=== PATIENT | female | born 1950 | race Caucasian/White ===

== ENCOUNTER 2016-10-05 16:36 | Inpatient (IN) | payer OTHER ==
[~2016-10-05] VITALS: Ht 144.8 cm; Wt 42.9 kg
[~2016-10-05 16:36] MED LIST: AGM875 PO
[2016-10-05] MEDS ORDERED: OPTIRAY 320 IV PRN (17:30)
[2016-10-05] MEDS ORDERED: LISI-461 PO (17:54)
[2016-10-05] MEDS ORDERED: PRLSR20 PO (17:54)
[2016-10-05 18:05] LABS: MEAN CELL VOLUME 83.6 fL (80-100); MEAN CORPUSCULAR HEMOGLOBIN 26.1 pg (25-34); MEAN CORPUSCULAR HGB CONC 31.3 g/dl (32-36); MEAN PLATELET VOLUME 9.7 fL (7.4-10.4); PLATELET COUNT 339 K/uL (130-400); RED BLOOD COUNT 3.71 M/uL (4.2-5.4); WHITE BLOOD COUNT 7.06 K/uL (4.8-10.8)
--- NOTE | 2016-10-05 18:07 | DIAGNOSTIC IMAGING REPORT ---
SINGLE VIEW CHEST CLINICAL HISTORY: Fever. Sepsis. FINDINGS: An AP, portable, upright chest radiograph is obtained. No prior studies are available for comparison at the time of dictation. The examination is degraded by portable technique and patient rotation. The heart appears enlarged. The pulmonary vasculature is noncongested. There are layering pleural effusions, right larger than left with bibasilar consolidation. No pneumothorax is seen. The skeletal structures are osteopenic. The bony thorax is grossly intact. IMPRESSION: 1. Cardiomegaly without radiographic evidence of congestive failure. 2. Layering pleural effusions, right larger than left with bibasilar consolidation. The majority of this likely represents atelectasis. Correlate clinically for evidence of superimposed pneumonia. Electronically signed by: Leroy Mcmahan M.D. 10/05/2016 6:06 PM Dictated Date/Time: 10/05/2016 6:05 PM
[2016-10-05 18:18] LABS: INR 1.1 (0.9-1.1); PARTIAL THROMBOPLASTIN RATIO 1.2; PROTHROMBIN TIME (PATIENT) 11.3 SECONDS (9.0-12.0)
[2016-10-05 18:22] LABS: ALT/SGPT 11 U/L (12-78); AST/SGOT 61 U/L (15-37); BLOOD UREA NITROGEN 19 mg/dl (7-18); BUN/CREATININE RATIO 30.4 (10-20); CALCIUM 8.6 mg/dl (8.5-10.1); CARBON DIOXIDE 25 mmol/L (21-32); CHLORIDE 109 mmol/L (98-107); CREATININE 0.62 mg/dl (0.60-1.20); GLUCOSE 95 mg/dl (70-99); POTASSIUM 4.1 mmol/L (3.5-5.1); SODIUM 144 mmol/L (136-145)
[2016-10-05 18:26] LABS: BASO % 0.1 %; BASO ABS # 0.01 K/uL (0-0.2); COMPLETE YES; EOS % 0.3 %; IG% 0.4 %; LYMPH % 10.9 %; LYMPH ABS # 0.77 K/uL (1.2-3.4); MONO % 6.2 %; NEUT % 82.1 %
[2016-10-05 18:31] LABS: ALKALINE PHOSPHATASE 52 U/L (45-117); CKMB/CK RATIO 1.7 (0-3.0)
--- NOTE | 2016-10-05 18:51 | DIAGNOSTIC IMAGING REPORT ---
CT ANGIOGRAM OF THE CHEST CLINICAL HISTORY: Atypical chest pain. Lower extremity deep venous thrombosis. COMPARISON STUDY: Chest x-ray dated 10/05/2016. TECHNIQUE: Following the IV administration of 80 cc of Optiray 320, CT angiogram of the chest was performed from the upper abdomen to the thoracic inlet utilizing the pulmonary embolus protocol. Images are reviewed in the axial, sagittal, and coronal planes. 3-D MIPS images are created and assessed. IV contrast was administered without complication. The examination is degraded by motion artifact, as well as by streak artifact from the patient's left arm which could not be elevated above the chest. CT DOSE: 151.87 mGy.cm FINDINGS: Thyroid: The right lobe of the thyroid gland is enlarged and heterogeneous. Subcentimeter nodules are identified. Thoracic aorta: The thoracic aorta is normal in caliber and demonstrates 4-vessel variant arch anatomy. No dissection is seen. Pulmonary vasculature: The pulmonary trunk is normal in caliber. There are no filling defects identified in main, lobar, or segmental pulmonary branches to suggest pulmonary embolus. Heart: The heart is top normal in size and without pericardial effusion. Lungs and pleural spaces: Evaluation of the lung parenchyma is degraded by expiratory motion artifact. There are moderate pleural effusions with bibasilar consolidation. The trachea and central airways are clear. Mediastinum: There is no mediastinal lymphadenopathy. Rebeca: Clear. Axillae: There is no axillary lymphadenopathy. Upper abdomen: A moderate hiatal hernia is identified. The liver is cirrhotic in morphology. There is a moderate volume of upper abdominal ascites. Peritoneal nodularity is suspected in the left upper quadrant. A 12 mm cyst is noted in the right lobe of the liver. Skeletal structures: The skeletal structures are osteopenic. Mild degenerative change is noted throughout the thoracic spine. No lytic or blastic bony lesions are seen. Soft tissues: The patient is cachectic. IMPRESSION: 1. Motion and streak artifact degraded examination 2. There is no evidence of pulmonary embolus in the main, lobar, or segmental pulmonary arteries. 3. Moderate pleural effusions with bibasilar consolidation. This likely represents atelectasis. Correlate clinically for evidence of superimposed pneumonia. 4. Cirrhotic liver morphology and upper abdominal ascites. 5. There is peritoneal nodularity identified in the upper abdomen suggesting carcinomatosis. Correlation with the patient's oncologic history will be required. 6. Moderate hiatal hernia. 7. Additional findings as above. Electronically signed by: Leroy Mcmahan M.D. 10/05/2016 6:49 PM Dictated Date/Time: 10/05/2016 6:41 PM
--- NOTE | 2016-10-05 19:23 | EMERGENCY ROOM VISIT NOTE ---
History Report prepared by Nico: Omer Pineda Under the Supervision of: Dr. Jose Gray D.O. First contact with patient: 16:42 Chief Complaint: ABNORMAL DIAGNOSTIC TESTING Stated Complaint: DVT IN RT LEG History of Present Illness The patient is a 66 year old female who presents to the Emergency Room with complaints of an episode of abnormal diagnostic testing today. Per the patient' s aide, she is has cancer and had an US today to determine if she could go home. A blood clot was noted to be present in her leg. The patient has no recent falls and does not take any reported medications, but she had an episode of hypertension about 6 months ago. She is mentally challenged and lives independently but has aides that come in for assistance. Per the patient, she denies any shortness of breath or any pain. Source of History: patient, caregiver Onset: today Position: other (legs) Quality: other (abnormal diagnostic testing) Timing: other (episode) Associated Symptoms: No SOB Review of Systems See HPI for pertinent positives & negatives. A total of 10 systems reviewed and were otherwise negative. Past Medical & Surgical Medical Problems: (1) History of cancer Family History No pertinent family history stated. Social History Smoking Status: Never Smoker Housing Status: lives alone Current/Historical Medications Scheduled Lisinopril (Zestril), 10 MG PO DAILY Omeprazole (Prilosec), 20 MG PO DAILY Allergies Coded Allergies: No Known Allergies (Unverified , 10/05/16) Physical Exam Vital Signs Date Time Temp Pulse Resp B/P Pulse Ox O2 Delivery O2 Flow Rate FiO2 10/05/16 18:44 91 24 99/70 95 4.0 10/05/16 17:56 95 Nasal Cannula 4.0 10/05/16 17:52 93 24 90 Nasal Cannula 2.0 10/05/16 17:48 113 10/05/16 17:41 Nasal Cannula 2.0 10/05/16 17:36 102 102/70 10/05/16 16:48 37.5 106 20 83/56 89 Room Air Physical Exam CONSTITUTIONAL/VITAL SIGNS: Reviewed / noted above. GENERAL: Non-toxic in appearance. INTEGUMENTARY: Warm, dry, and [place]. HEAD: Normocephalic. EYES: without scleral icterus or trauma. ENT/OROPHARYNX: clear and moist. LYMPHADENOPATHY/NECK: Is supple without lymphadenopathy or meningismus. RESPIRATORY: Lungs clear and equal. CARDIOVASCULAR: Regular rate and rhythm. GI/ABDOMEN: Soft and nontender. No organomegaly or pulsatile mass. No rebound or guarding. Normal bowel sounds. EXTREMITIES: Warm and well perfused. BACK: No CVA tenderness. NEUROLOGICAL: Intact without focal deficits. PSYCHIATRIC: normal affect. MUSCULOSKELETAL: Normally developed with good muscle tone. Medical Decision & Procedures ER Provider Diagnostic Interpretation: Radiology results are stated below per my review and radiologist interpretation: SINGLE VIEW CHEST FINDINGS: An AP, portable, upright chest radiograph is obtained. No prior studies are available for comparison at the time of dictation. The examination is degraded by portable technique and patient rotation. The heart appears enlarged. The pulmonary vasculature is noncongested. There are layering pleural effusions, right larger than left with bibasilar consolidation. No pneumothorax is seen. The skeletal structures are osteopenic. The bony thorax is grossly intact. IMPRESSION: 1. Cardiomegaly without radiographic evidence of congestive failure. 2. Layering pleural effusions, right larger than left with bibasilar consolidation. The majority of this likely represents atelectasis. Correlate clinically for evidence of superimposed pneumonia. Electronically signed by: Leroy Mcmahan M.D. 10/05/2016 6:06 PM Dictated Date/Time: 10/05/2016 6:[address] ANGIOGRAM OF THE CHEST FINDINGS: Thyroid: The right lobe of the thyroid gland is enlarged and heterogeneous. Subcentimeter nodules are identified. Thoracic aorta: The thoracic aorta is normal in caliber and demonstrates 4-vessel variant arch anatomy. No dissection is seen. Pulmonary vasculature: The pulmonary trunk is normal in caliber. There are no filling defects identified in main, lobar, or segmental pulmonary branches to suggest pulmonary embolus. Heart: The heart is top normal in size and without pericardial effusion. Lungs and pleural spaces: Evaluation of the lung parenchyma is degraded by expiratory motion artifact. There are moderate pleural effusions with bibasilar consolidation. The trachea and central airways are clear. Mediastinum: There is no mediastinal lymphadenopathy. Rebeca: Clear. Axillae: There is no axillary lymphadenopathy. Upper abdomen: A moderate hiatal hernia is identified. The liver is cirrhotic in morphology. There is a moderate volume of upper abdominal ascites. Peritoneal nodularity is suspected in the left upper quadrant. A 12 mm cyst is noted in the right lobe of the liver. Skeletal structures: The skeletal structures are osteopenic. Mild degenerative change is noted throughout the thoracic spine. No lytic or blastic bony lesions are seen. Soft tissues: The patient is cachectic. IMPRESSION: 1. Motion and streak artifact degraded examination 2. There is no evidence of pulmonary embolus in the main, lobar, or segmental pulmonary arteries. 3. Moderate pleural effusions with bibasilar consolidation. This likely represents atelectasis. Correlate clinically for evidence of superimposed pneumonia. 4. Cirrhotic liver morphology and upper abdominal ascites. 5. There is peritoneal nodularity identified in the upper abdomen suggesting carcinomatosis. Correlation with the patient's oncologic history will be required. 6. Moderate hiatal hernia. 7. Additional findings as above. Electronically signed by: Leroy Mcmahan M.D. 10/05/2016 6:49 PM Dictated Date/Time: 10/05/2016 6:41 PM Laboratory Results 10/05/16 17:50 Red Blood Count 3.71, Mean Corpuscular Volume 83.6, Mean Corpuscular Hemoglobin 26.1, Mean Corpuscular Hemoglobin Concent 31.3, Mean Platelet Volume 9.7, Neutrophils (%) (Auto) 82.1, Lymphocytes (%) (Auto) 10.9, Monocytes (%) (Auto) 6.2, Eosinophils (%) (Auto) 0.3, Basophils (%) (Auto) 0.1, Neutrophils # (Auto) 5.79, Lymphocytes # (Auto) 0.77, Monocytes # (Auto) 0.44, Eosinophils # (Auto) 0.02, Basophils # (Auto) 0.01 10/05/16 17:50 Test 10/05/16 17:50 White Blood Count 7.06 K/uL (4.8-10.8) Red Blood Count 3.71 M/uL (4.2-5.4) Hemoglobin 9.7 g/dL (12.0-16.0) Hematocrit 31.0 % (37-47) Mean Corpuscular Volume 83.6 fL (80-100) Mean Corpuscular Hemoglobin 26.1 pg (25-34) Mean Corpuscular Hemoglobin Concent 31.3 g/dl (32-36) Platelet Count 339 K/uL (130-400) Mean Platelet Volume 9.7 fL (7.4-10.4) Neutrophils (%) (Auto) 82.1 % Lymphocytes (%) (Auto) 10.9 % Monocytes (%) (Auto) 6.2 % Eosinophils (%) (Auto) 0.3 % Basophils (%) (Auto) 0.1 % Neutrophils # (Auto) 5.79 K/uL (1.4-6.5) Lymphocytes # (Auto) 0.77 K/uL (1.2-3.4) Monocytes # (Auto) 0.44 K/uL (0.11-0.59) Eosinophils # (Auto) 0.02 K/uL (0-0.5) Basophils # (Auto) 0.01 K/uL (0-0.2) RDW Standard Deviation 55.1 fL (36.4-46.3) RDW Coefficient of Variation 17.9 % (11.5-14.5) Immature Granulocyte % (Auto) 0.4 % Immature Granulocyte # (Auto) 0.03 K/uL (0.00-0.02) Prothrombin Time 11.3 SECONDS (9.0-12.0) Prothromb Time International Ratio 1.1 (0.9-1.1) Activated Partial Thromboplast Time 30.3 SECONDS (21.0-31.0) Partial Thromboplastin Ratio 1.2 Anion Gap 10.0 mmol/L (3-11) Estimated GFR () 110.4 Estimated GFR (Non- 95.3 BUN/Creatinine Ratio 30.4 (10-20) Calcium Level 8.6 mg/dl (8.5-10.1) Total Bilirubin 0.5 mg/dl (0.2-1) Direct Bilirubin 0.2 mg/dl (0-0.2) Aspartate Amino Transf (AST/SGOT) 61 U/L (15-37) Alanine Aminotransferase (ALT/SGPT) 11 U/L (12-78) Alkaline Phosphatase 52 U/L (45-117) Total Creatine Kinase 112 U/L (26-192) Creatine Kinase MB 1.9 ng/ml (0.5-3.6) Creatine Kinase MB Ratio 1.7 (0-3.0) Troponin I 1.310 ng/ml (0-0.045) Total Protein 6.5 gm/dl (6.4-8.2) Albumin 2.2 gm/dl (3.4-5.0) Lipase 409 U/L (73-393) Laboratory results as stated above per my review. ECG Indication: other (abnormal diagnostic testing) Rate (beats per minute): 98 Rhythm: normal sinus Findings: no acute ischemic change, no ectopy, other (low voltage) ED Course 1740: Previous medical records were reviewed. The patient was evaluated in room A10. A complete history and physical examination was performed. 1909: Discussed the patient's case with Evelyne Wells PA-C. The patient will be evaluated for further treatment and disposition. Medical Decision the differential was considered includes acute myocardial infarction, acute coronary syndrome, myocarditis, pericarditis, pericardial effusions /tamponade, esophageal perforation, thoracic aortic dissection, pulmonary embolism, pneumonia, pneumothorax, pancreatitis, shingles, acute cholecystitis, perforated abdominal viscus. This is a 66-year-old female who presents to the ED with a chief complaint of a DVT in the right lower extremity. The patient had an outpatient ultrasound that revealed a DVT. The patient was sent here after evaluation of this. There was concern for a PE because the patient has lower pulse ox readings at the office. They were around 90-92%. The patient has some mild MR and is unable to provide much details. She has no specific complaints. She has a history of pancreatic cancer and is supposed to be on palliative care. Her only living relative is her sister who lives in [place]. Her name is Lety and her number is [phone]. She is not yet power of corporate associate attorney but the PCP was going to fill out paperwork tomorrow for this. This will likely not get done since the patient is not following up tomorrow. The patient's EKG shows normal sinus rhythm at a rate of 98 without acute ischemic changes. Troponin is 1.31. CT scan of the chest did not reveal obvious PE. There was some atelectasis. No obvious pneumonia. Hemoglobin was 9.7. The patient was told the results. She will be admitted to the hospital for further inpatient care. I spoke with the hospitalist about this patient. Consults Time Called: 1904 Consulting Physician: Evelyne Wells PA-C, [place] Returned Call: 1909 Discussed the patient's case with Evelyne Wells PA-C. The patient will be evaluated for further treatment and disposition. Impression Primary Impression: DVT (deep venous thrombosis) Additional Impression: Elevated troponin Scribe Attestation The scribe's documentation has been prepared under my direction and personally reviewed by me in its entirety. I confirm that the note above accurately reflects all work, treatment, procedures, and medical decision making performed by me. Departure Information Dispostion Being Evaluated By Hospitalist Referrals Pamela Kim PA-C (PCP) Patient Instructions My [facility] Problem Qualifiers
[2016-10-05] MEDS ORDERED: LSN20 PO (19:58)
[2016-10-05] MEDS ORDERED: ACETAMINOPHEN 325 MG TAB PO ONE (20:17)
[2016-10-05] MEDS ORDERED: ACETAMINOPHEN 325 MG TAB PO PRN (20:30)
[2016-10-05 20:33] LABS: ALLEN TEST POS (POS); ARTERIAL BLD GAS O2 SATURATION 93.2 % (90-95); ARTERIAL BLOOD GAS BASE EXCESS -1.6 mEq/L (-9-1.8); ARTERIAL BLOOD GAS HCO3 21 mmol/L (19-24); ARTERIAL BLOOD GAS PO2 68 mmHg (80-95); O2 ADMINISTRATION 4L O2
[2016-10-05 20:35] LABS: ARTERIAL BLOOD GAS pH 7.51 (7.35-7.45)
--- NOTE | 2016-10-05 20:39 | History and Physical ---
History & Physical Date & Time of Service: Oct 05, 2016 at 19:58 Chief Complaint: Dvt In Rt Leg Primary Care Physician: Pamela Kim PA-C History of Present Illness Source: patient, clinic records, hospital records, other (aide from [employer]) This is a 66 y/o female with PMH of intellectual disability, pancreatic cancer stage IV with pelvic mass, malignant ascites, pleural effusions, who was sent to the ED for DVT on outpatient ultrasound. Hx obtained from records and aide at bedside as patient is a poor historian. Patient was seen by Dr. Parker today and noted to have trace edema and borderline sat of 91@ on RA. Ultrasound showed RLE DVT. Pt also underwent therapeutic paracentesis. Patient's aide at bedside states the abdominal distension appears improved. Appetite has been low. Weight dropped 25 lb in past year. Pt previously lived independently but is less able to take care of herself for past few weeks. No hx of heart disease. She was not on oxygen at home. Patient denies fever, chills, rhinorrhea , cough, chest pain, SOB, abdominal pain, nausea, vomiting, diarrhea, dysuria, frequency, calf pain, abnormal bleeding, wounds. ROS not entirely reliable as her aide notes that patient is unlikely to complain when having symptoms. Past Medical/Surgical History Medical Problems: (1) Hypertension Status: Chronic (2) Intellectual disability Status: Chronic (3) Malignant ascites Status: Chronic (4) Pancreatic cancer Permanent Comment: stage IV Status: Chronic (5) Pelvic mass Status: Chronic Surgical Problems: (1) H/O tubal ligation Status: Chronic Family History FH: CAD (coronary artery disease) FATHER FH: cancer FATHER (prostate CA) Social History Smoking Status: Never Smoker Alcohol Use: none Drug Use: none Housing status: lives alone (aide from [employer] checks in on her) Multi-Drug Resistant Organisms History of MDRO: No Allergies Coded Allergies: No Known Allergies (Unverified , 10/05/16) Home Medications Scheduled Lisinopril (Lisinopril), 20 MG PO DAILY Omeprazole (Prilosec), 20 MG PO DAILY Review of Systems Ten point ROS performed with pertinent positives and negatives noted in HPI. ROS not entirely reliable from the patient as caregiver states she is not likely to complain when having symptoms. Physical Exam Vital Signs Date Time Temp Pulse Resp B/P Pulse Ox O2 Delivery O2 Flow Rate FiO2 3/2/17 19:41 37.6 93 31 97/66 93 Nasal Cannula 4.0 10/05/16 18:44 91 24 99/70 95 4.0 10/05/16 17:56 95 Nasal Cannula 4.0 10/05/16 17:52 93 24 90 Nasal Cannula 2.0 10/05/16 17:48 113 10/05/16 17:41 Nasal Cannula 2.0 10/05/16 17:36 102 102/70 10/05/16 16:48 37.5 106 20 83/56 89 Room Air General Appearance: no apparent distress, + cachetic, + pertinent finding ( alert chronically ill appearing 66 year old female, intellectual disability, aide at bedside) Head: normocephalic, atraumatic Eyes: normal inspection, PERRL, EOMI ENT: hearing grossly normal, + pertinent finding (pt uncooperative with exam of pharynx) Neck: trachea midline Respiratory/Chest: lungs clear, no respiratory distress, no accessory muscle use, + decreased breath sounds (at bases), + pertinent finding (no adventitious sounds) Cardiovascular: regular rate, rhythm, no murmur Abdomen/GI: normal bowel sounds, non tender, soft, + pertinent finding (mildly distended but soft, mass felt in pelvis) Extremities/Musculoskelatal: no calf tenderness, + pertinent finding (trace pretibial edema bilaterally) Neurologic/Psych: alert, normal mood/affect, oriented x 3, + pertinent finding (intellectual disability) Skin: normal color, warm/dry Diagnostics Laboratory Results Results Past 24 Hours Test 10/05/16 17:50 10/05/16 19:35 Range/Units White Blood Count 7.06 4.8-10.8 K/uL Red Blood Count 3.71 4.2-5.4 M/uL Hemoglobin 9.7 12.0-16.0 g/dL Hematocrit 31.0 37-47 % Mean Corpuscular Volume 83.6 80-100 fL Mean Corpuscular Hemoglobin 26.1 25-34 pg Mean Corpuscular Hemoglobin Concent 31.3 32-36 g/dl Platelet Count 339 130-400 K/uL Mean Platelet Volume 9.7 7.4-10.4 fL Neutrophils (%) (Auto) 82.1 % Lymphocytes (%) (Auto) 10.9 % Monocytes (%) (Auto) 6.2 % Eosinophils (%) (Auto) 0.3 % Basophils (%) (Auto) 0.1 % Neutrophils # (Auto) 5.79 1.4-6.5 K/uL Lymphocytes # (Auto) 0.77 1.2-3.4 K/uL Monocytes # (Auto) 0.44 0.11-0.59 K/uL Eosinophils # (Auto) 0.02 0-0.5 K/uL Basophils # (Auto) 0.01 0-0.2 K/uL RDW Standard Deviation 55.1 36.4-46.3 fL RDW Coefficient of Variation 17.9 11.5-14.5 % Immature Granulocyte % (Auto) 0.4 % Immature Granulocyte # (Auto) 0.03 0.00-0.02 K/uL Prothrombin Time 11.3 9.0-12.0 SECONDS Prothromb Time International Ratio 1.1 0.9-1.1 Activated Partial Thromboplast Time 30.3 21.0-31.0 SECONDS Partial Thromboplastin Ratio 1.2 Sodium Level 144 136-145 mmol/L Potassium Level 4.1 3.5-5.1 mmol/L Chloride Level 109 98-107 mmol/L Carbon Dioxide Level 25 21-32 mmol/L Anion Gap 10.0 3-11 mmol/L Blood Urea Nitrogen 19 7-18 mg/dl Creatinine 0.62 0.60-1.20 mg/dl Estimated GFR () 110.4 Estimated GFR (Non- 95.3 BUN/Creatinine Ratio 30.4 10-20 Random Glucose 95 70-99 mg/dl Calcium Level 8.6 8.5-10.1 mg/dl Total Bilirubin 0.5 0.2-1 mg/dl Direct Bilirubin 0.2 0-0.2 mg/dl Aspartate Amino Transf (AST/SGOT) 61 15-37 U/L Alanine Aminotransferase (ALT/SGPT) 11 12-78 U/L Alkaline Phosphatase 52 45-117 U/L Total Creatine Kinase 112 26-192 U/L Creatine Kinase MB 1.9 0.5-3.6 ng/ml Creatine Kinase MB Ratio 1.7 0-3.0 Troponin I 1.310 0-0.045 ng/ml Total Protein 6.5 6.4-8.2 gm/dl Albumin 2.2 3.4-5.0 gm/dl Lipase 409 73-393 U/L Diagnostic Radiology SINGLE VIEW CHEST CLINICAL HISTORY: Fever. Sepsis. FINDINGS: An AP, portable, upright chest radiograph is obtained. No prior studies are available for comparison at the time of dictation. The examination is degraded by portable technique and patient rotation. The heart appears enlarged. The pulmonary vasculature is noncongested. There are layering pleural effusions, right larger than left with bibasilar consolidation. No pneumothorax is seen. The skeletal structures are osteopenic. The bony thorax is grossly intact. IMPRESSION: 1. Cardiomegaly without radiographic evidence of congestive failure. 2. Layering pleural effusions, right larger than left with bibasilar consolidation. The majority of this likely represents atelectasis. Correlate clinically for evidence of superimposed pneumonia. CT ANGIOGRAM OF THE CHEST CLINICAL HISTORY: Atypical chest pain. Lower extremity deep venous thrombosis. COMPARISON STUDY: Chest x-ray dated 10/05/2016. TECHNIQUE: Following the IV administration of 80 cc of Optiray 320, CT angiogram of the chest was performed from the upper abdomen to the thoracic inlet utilizing the pulmonary embolus protocol. Images are reviewed in the axial, sagittal, and coronal planes. 3-D MIPS images are created and assessed. IV contrast was administered without complication. The examination is degraded by motion artifact, as well as by streak artifact from the patient's left arm which could not be elevated above the chest. CT DOSE: 151.87 mGy.cm FINDINGS: Thyroid: The right lobe of the thyroid gland is enlarged and heterogeneous. Subcentimeter nodules are identified. Thoracic aorta: The thoracic aorta is normal in caliber and demonstrates 4-vessel variant arch anatomy. No dissection is seen. Pulmonary vasculature: The pulmonary trunk is normal in caliber. There are no filling defects identified in main, lobar, or segmental pulmonary branches to suggest pulmonary embolus. Heart: The heart is top normal in size and without pericardial effusion. Lungs and pleural spaces: Evaluation of the lung parenchyma is degraded by expiratory motion artifact. There are moderate pleural effusions with bibasilar consolidation. The trachea and central airways are clear. Mediastinum: There is no mediastinal lymphadenopathy. Rebeca: Clear. Axillae: There is no axillary lymphadenopathy. Upper abdomen: A moderate hiatal hernia is identified. The liver is cirrhotic in morphology. There is a moderate volume of upper abdominal ascites. Peritoneal nodularity is suspected in the left upper quadrant. A 12 mm cyst is noted in the right lobe of the liver. Skeletal structures: The skeletal structures are osteopenic. Mild degenerative change is noted throughout the thoracic spine. No lytic or blastic bony lesions are seen. Soft tissues: The patient is cachectic. IMPRESSION: 1. Motion and streak artifact degraded examination 2. There is no evidence of pulmonary embolus in the main, lobar, or segmental pulmonary arteries. 3. Moderate pleural effusions with bibasilar consolidation. This likely represents atelectasis. Correlate clinically for evidence of superimposed pneumonia. 4. Cirrhotic liver morphology and upper abdominal ascites. 5. There is peritoneal nodularity identified in the upper abdomen suggesting carcinomatosis. Correlation with the patient's oncologic history will be required. 6. Moderate hiatal hernia. 7. Additional findings as above. EKG NSR, 98 bpm, nonspecific T wave abnormality inferior leads, no prior EKG for comparison Impression Assessment and Plan ACUTE DVT RLE Noted on outpatient doppler 10/05/16 May not be candidate for anticoagulation due to anemia, liver cirrhosis HYPOXIA Hypoxic on RA in ER; not on home O2 CTA negative for PE; + moderate pleural effusions with bibasilar consolidation, likely atelectasis, correlate clinically for pneumonia Low clinical suspicion for pneumonia; +low grade temp 37.6 in ER; no leukocytosis, no recent cough/ sob ELEVATED TROPONIN Denies chest pain EKG nonspecific T wave abnormality Trend serial enzymes ANEMIA Hg is 9.7; was running 10's as outpatient for past month Denies any bleeding although patient hx is unreliable STAGE IV PANCREATIC CANCER Follows with Dr. Parker As per clinic note patient's sister Jessica Christianson declined palliative chemotherapy and opted for palliative care MALIGNANT ASCITES S/p therapeutic paracentesis today HYPERTENSION Episodic hypotension in ER Hold lisinopril DISPOSITION Lives alone; may need home health or placement due to recent difficulty caring for herself Follows with Pamela Kim PA-C for primary care and Dr. Parker for oncology Pt seen in collaboration with Dr. Ching. Please see his addendum for additional recommendations. Assessment/Plan IM ATTENDING " Patient seen and examined. Preceding documentation by Ms. Evelyne Wells PA-C, reviewed. In addition,stool hemoccult negative. FINAL ASSESSMENT AND PLAN as follows: 1. Acute hypoxemic respiratory failure secondary to srini pleural effusions prob from malignant ascites sp recent tx paracentesis hx cirrhosis 2 to metastatic pancreatic cancer recent dx px deemed to be a poor candidate for chemotx as per records 2. Acute deep vein thrombosis likely 2 to malignancy 3. troponinemia likely secondary to demand 4. Hypertension, patient's blood pressure on the lower side. 5. Cognitive impairment as per records. 6. increasing functional disability 7. malnutrition/ low body mass index/cancer cachexia 8. progressive anemia over the last few months likely secondary to malignancy/cirrhosis GMF supplemental O2, baseline ABG. Lasix one dose once px normotensive low dose IV heparin for now start coumadin in AM if Hg stable anemia workup. decrease home ACEI dose PT/OT evaluation Social service RE discharge planning. Patient will likely need placement prior to discharge. Nutrition consult low BMI DVT prophylaxis. IV heparin-coumadin bridge tx (goal INR 2-3) DNR as per sister/closest living kin, . Tami Harmon. She requests updates from providers at .
[2016-10-05 20:58] LABS: MAGNESIUM 1.7 mg/dl (1.8-2.4); THYROID STIMULATING HORMONE 2.33 uIu/ml (0.300-4.500)
[2016-10-05] MEDS ORDERED: ONDANSETRON INJ 2 MG/ML 2 ML VIAL IV PRN (21:45)
[2016-10-05] MEDS ORDERED: MoRPHine SULFATE 2 MG/ML CARP IV PRN (21:45)
[2016-10-05] MEDS ORDERED: TRAMADOL HCL 50 MG TAB PO PRN (21:45)
[2016-10-05] MEDS ORDERED: HEPARIN IV LOW DOSE NO BOLUS SCH (21:59)
[2016-10-05 22:40] VITALS: BP 97/65; PULSE 93; TEMP 36.7; O2SAT 92
[2016-10-05] MEDS ORDERED: MAGNESIUM SULFATE 1GM / D5W 1 GM in PREMIXED IN D5W 100 ML IV ONE (23:00)
[2016-10-05] MEDS ORDERED: FUROSEMIDE INJ 20 MG in SYRINGE 0 ML IV ONE (23:00)
[2016-10-05 23:33] VITALS: Ht 144.8 cm; Wt 42.9 kg
[2016-10-05 23:55] VITALS: BP 90/61
[2016-10-06] MEDS: HEPARIN 25,000 UNIT/500ML D5W 500 ML IV PRN ×3 (02:01→17:42)
[2016-10-06 04:00] VITALS: BP 93/61; PULSE 79; TEMP 36.7; O2SAT 93
--- NOTE | 2016-10-06 06:07 | HISTORY & PHYSICAL EXAMINATION ---
DATE OF ADMISSION: 10/05/2016 IM ATTENDING " Patient seen and examined. Preceding documentation by Ms. Evelyne Wells PA-C, reviewed. In addition,stool hemoccult negative. FINAL ASSESSMENT AND PLAN as follows: 1. Acute hypoxemic respiratory failure secondary to srini pleural effusions prob from malignant ascites sp recent tx paracentesis hx cirrhosis 2 to metastatic pancreatic cancer recent dx px deemed to be a poor candidate for chemotx as per records 2. Acute deep vein thrombosis likely 2 to malignancy 3. troponinemia likely secondary to demand 4. Hypertension, patient's blood pressure on the lower side. 5. Cognitive impairment as per records. 6. increasing functional disability 7. malnutrition/ low body mass index/cancer cachexia 8. progressive anemia over the last few months likely secondary to malignancy/cirrhosis GMF supplemental O2, baseline ABG. Lasix one dose once px normotensive low dose IV heparin for now start coumadin in AM if Hg stable anemia workup. decrease home ACEI dose PT/OT evaluation Social service RE discharge planning. Patient will likely need placement prior to discharge. Nutrition consult low BMI DVT prophylaxis. IV heparin-coumadin bridge tx (goal INR 2-3) DNR as per sister/closest living kin, Ms. Tami Harmon. She requests updates from providers at . [facility]
[2016-10-06 07:28] VITALS: BP 95/63; PULSE 77; TEMP 37.2; O2SAT 95
[2016-10-06 08:20] LABS: HEMATOCRIT 29.1 % (37-47); MEAN CELL VOLUME 82.7 fL (80-100); MEAN CORPUSCULAR HEMOGLOBIN 25.9 pg (25-34); MEAN CORPUSCULAR HGB CONC 31.3 g/dl (32-36); MEAN PLATELET VOLUME 9.3 fL (7.4-10.4); PLATELET COUNT 295 K/uL (130-400); RED BLOOD COUNT 3.52 M/uL (4.2-5.4); WHITE BLOOD COUNT 6.63 K/uL (4.8-10.8)
[2016-10-06 08:29] LABS: PARTIAL THROMBOPLASTIN RATIO 1.2
[2016-10-06 08:49] LABS: BUN/CREATININE RATIO 35.3 (10-20); CALCIUM 8.5 mg/dl (8.5-10.1); CREATININE 0.49 mg/dl (0.60-1.20); MAGNESIUM 2.2 mg/dl (1.8-2.4); POTASSIUM 3.9 mmol/L (3.5-5.1)
[2016-10-06 08:53] LABS: FERRITIN 468.1 ng/ml (8.0-388.0)
[2016-10-06] MEDS: LISINOPRIL 2.5 MG TAB PO SCH (08:58)
[2016-10-06] MEDS: PANTOprazole SOD 40 MG TAB PO SCH (08:59)
[2016-10-06 09:20] LABS: BASO % 0.2 %; BASO ABS # 0.01 K/uL (0-0.2); COMPLETE YES; EOS % 0.5 %; IG% 0.3 %; LYMPH % 11.6 %; LYMPH ABS # 0.77 K/uL (1.2-3.4); MONO % 6.6 %; NEUT % 80.8 %
[2016-10-06 09:50] LABS: PARTIAL THROMBOPLASTIN RATIO 1.4
[2016-10-06] MEDS ORDERED: HEPARIN IV BOLUS 3,000 UNIT in SYRINGE 0 ML IV ONE ×2 (10:30→17:15)
[2016-10-06] MEDS: BOOST VANILLA PO SCH ×4 (12:52→17:39)
[2016-10-06 16:00] VITALS: BP 97/65; PULSE 82; TEMP 37; O2SAT 96
[2016-10-06 16:37] LABS: PARTIAL THROMBOPLASTIN RATIO 1.4
[2016-10-06] MEDS ORDERED: WARFARIN SOD 5 MG TAB PO ONE (17:30)
--- NOTE | 2016-10-06 17:33 | Progress Note ---
Medicine Progress Note Date & Time of Visit: Oct 06, 2016 at 17:06. Subjective Pt was seen and examined Lying in bed with no distress with aid at bedside Pt said that she does not have any complaint Pt answered no for any question asked denies any chest pain, palpitation, dizziness and sob Objective Last 8 Hrs Date Time Temp Pulse Resp B/P Pulse Ox O2 Delivery O2 Flow Rate FiO2 10/06/16 16:00 37.0 82 16 97/65 96 2.0 Physical Exam: General- No acute distress Head- atraumatic Eyes- PERRL, EOMI ENT- oropharynx clear Neck- supple, no JVD Lungs- No wheezing, no crackles Heart- regular rhythm; no murmur Abdomen- normal bowel sounds, soft, Extremities- no calf tenderness Neuro- alert, awake, PERRL, EOMI Skin- warm & dry Laboratory Results: Last 24 Hours Test 10/05/16 17:50 10/05/16 20:12 10/06/16 07:05 10/06/16 09:33 White Blood Count 7.06 K/uL 6.63 K/uL Red Blood Count 3.71 M/uL 3.52 M/uL Hemoglobin 9.7 g/dL 9.1 g/dL Hematocrit 31.0 % 29.1 % Mean Corpuscular Volume 83.6 fL 82.7 fL Mean Corpuscular Hemoglobin 26.1 pg 25.9 pg Mean Corpuscular Hemoglobin Concent 31.3 g/dl 31.3 g/dl Platelet Count 339 K/uL 295 K/uL Mean Platelet Volume 9.7 fL 9.3 fL Neutrophils (%) (Auto) 82.1 % 80.8 % Lymphocytes (%) (Auto) 10.9 % 11.6 % Monocytes (%) (Auto) 6.2 % 6.6 % Eosinophils (%) (Auto) 0.3 % 0.5 % Basophils (%) (Auto) 0.1 % 0.2 % Neutrophils # (Auto) 5.79 K/uL 5.36 K/uL Lymphocytes # (Auto) 0.77 K/uL 0.77 K/uL Monocytes # (Auto) 0.44 K/uL 0.44 K/uL Eosinophils # (Auto) 0.02 K/uL 0.03 K/uL Basophils # (Auto) 0.01 K/uL 0.01 K/uL RDW Standard Deviation 55.1 fL 54.4 fL RDW Coefficient of Variation 17.9 % 18.0 % Immature Granulocyte % (Auto) 0.4 % 0.3 % Immature Granulocyte # (Auto) 0.03 K/uL 0.02 K/uL Prothrombin Time 11.3 SECONDS Prothromb Time International Ratio 1.1 Activated Partial Thromboplast Time 30.3 SECONDS 32.1 SECONDS 35.5 SECONDS Partial Thromboplastin Ratio 1.2 1.2 1.4 Sodium Level 144 mmol/L 142 mmol/L Potassium Level 4.1 mmol/L 3.9 mmol/L Chloride Level 109 mmol/L 109 mmol/L Carbon Dioxide Level 25 mmol/L 22 mmol/L Anion Gap 10.0 mmol/L 11.0 mmol/L Blood Urea Nitrogen 19 mg/dl 17 mg/dl Creatinine 0.62 mg/dl 0.49 mg/dl Estimated GFR () 110.4 119.3 Estimated GFR (Non- 95.3 103.0 BUN/Creatinine Ratio 30.4 35.3 Random Glucose 95 mg/dl 91 mg/dl Calcium Level 8.6 mg/dl 8.5 mg/dl Total Bilirubin 0.5 mg/dl Direct Bilirubin 0.2 mg/dl Aspartate Amino Transf (AST/SGOT) 61 U/L Alanine Aminotransferase (ALT/SGPT) 11 U/L Alkaline Phosphatase 52 U/L Total Creatine Kinase 112 U/L Creatine Kinase MB 1.9 ng/ml Creatine Kinase MB Ratio 1.7 Troponin I 1.310 ng/ml 1.250 ng/ml Total Protein 6.5 gm/dl Albumin 2.2 gm/dl Lipase 409 U/L Arterial Blood pH 7.51 Arterial Blood Partial Pressure CO2 27 mmHg Arterial Blood Partial Pressure O2 68 mmHg Arterial Blood HCO3 21 mmol/L Arterial Blood Oxygen Saturation 93.2 % Arterial Blood Base Excess -1.6 mEq/L Arterial Blood Gas Delivery 4L O2 Remberto Test POS Lactic Acid Level 1.2 mmol/L Magnesium Level 1.7 mg/dl 2.2 mg/dl Thyroid Stimulating Hormone (TSH) 2.330 uIu/ml Red Blood Cell Morphology Unremarkable Absolute Reticulocyte Count 0.09 10^6/uL Percent Reticulocyte Count 2.5 % Est Creatinine Clear Calc Drug Dose 70.7 ml/min Iron Level 15 mcg/dl Total Iron Binding Capacity 145 mcg/dl Transferrin 116 mg/dl Transferrin % Saturation 9 % Ferritin 468.1 ng/ml Vitamin B12 Level 329 pg/mL Folate 4.60 ng/mL Test 10/06/16 16:16 Activated Partial Thromboplast Time 37.6 SECONDS Partial Thromboplastin Ratio 1.4 Assessment & Plan ACUTE DVT RLE Outpatient venous doppler of LE on 10/05/16 showed Right lower extremity deep venous thrombosis Was started on heparin drip. coumadin 5 mg start today May not be a good candidate for anticoagulation due to anemia, liver cirrhosis and non compliant Live alone with intellectual disability Pt should be placed to a residential if she will be discharged on coumadin because she will not be able to follow direction with coumadin dosage Pt will stay in the hospital until INR therapeutic with heparin drip, goal INR btw 2-3 I spoke to pt aid, she said that the do not train to give medication (she will not be able to give lovenox) Also aid said pt sometimes refused to take med. If she cannot comply or if bleeding occurs, will consider IVC filter in the future. HYPOXIA Hypoxic on RA in ER; not on home O2 CTA chest negative for PE; + moderate pleural effusions with bibasilar consolidation, likely atelectasis, correlate clinically for pneumonia Low clinical suspicion for pneumonia; +low grade temp 37.6 in ER; no leukocytosis, no recent cough/ sob Will not start on abx as per aid, pt saw a infirmary attendant in [place], that start her on oxygen they waiting for the [facility] to send her oxygen continue supplement oxygen ELEVATED TROPONIN Denies chest pain EKG nonspecific T wave abnormality Troponin trend down will continue monitor ANEMIA Hg on admission 9.7; was 10's as outpatient for past month No active bleeding Hemoccult done in the ER before starting heparin drip was negative Hgb today was 9.1 continue monitor h/h STAGE IV PANCREATIC CANCER Follows with Dr. Parker As per clinic note patient's sister Jessica Christianson declined palliative chemotherapy and opted for palliative care MALIGNANT ASCITES S/p therapeutic paracentesis on 10/05/16 stable HYPERTENSION Episodic hypotension in ER has not been taking lisinopril as per aid Continue holding lisinopril DISPOSITION She will need placement Follows with Pamela Kim PA-C for primary care and Dr. Parker for oncology Current Inpatient Medications: Current Inpatient Medications Medications (Trade) Dose Ordered Sig/Junior Route Start Time Stop Time Status Last Admin Dose Admin Ioversol (Optiray 320) 125 ml UD PRN IV 10/05/16 17:30 10/09/16 17:29 Acetaminophen (Tylenol Tab) 325 mg Q6H PRN PO 10/05/16 20:30 11/04/16 20:29 Tramadol HCl (Ultram Tab) 25 mg Q6H PRN PO 10/05/16 21:45 11/04/16 21:44 Morphine Sulfate (MoRPHine SULFATE INJ) 2 mg Q4H PRN IV 10/05/16 21:45 10/19/16 21:44 Ondansetron HCl (Zofran Inj) 4 mg Q6H PRN IV 10/05/16 21:45 11/04/16 21:44 Lisinopril (Zestril Tab) 2.5 mg DAILY PO 10/06/16 09:00 11/05/16 08:59 Pantoprazole Sodium 40 mg 40 mg QAM PO 10/06/16 09:00 11/05/16 08:59 10/06/16 08:59 40 MG Heparin Sodium/ Dextrose (Heparin 25,000 Unit/500ml D5W) 500 ml @ 12 mls/hr Q24H PRN IV 10/06/16 01:30 11/05/16 01:29 10/06/16 10:46 12 MLS/HR Enteral Nutritional Formula (Boost) 1 can TIDM PO 10/06/16 12:00 11/05/16 11:59 10/06/16 12:52 1 CAN Miscellaneous Information (Nursing Heparin Iv Rate Change) 1 ea ONE ONCE N/A 10/06/16 17:00 10/06/16 17:01 UNV
[2016-10-06 17:34] LABS: URINE APPEARANCE CLOUDY (CLEAR); URINE COLOR DK YELLOW; URINE EPITHELIAL CELL AUTO >30 /lpf (0-5); URINE NITRITE POS (NEG); URINE SPECIFIC GRAVITY > 1.045 (1.000-1.030); UROBILINOGEN NEG (NEG); ZZUR CULT IF INDIC CLEAN CATCH NO
[2016-10-06 17:37] LABS: MANUAL MICROSCOPIC REQUIRED? NO; REVIEW REQ? YES; URINE BILIRUBIN NEG (NEG)
[2016-10-06 17:47] LABS: URINE PATH CASTS 0-3 GRANULAR CASTS /lpf (0)
[2016-10-06 23:35] VITALS: BP 95/61; PULSE 72; TEMP 36.4; O2SAT 93
[2016-10-06 23:53] LABS: PARTIAL THROMBOPLASTIN RATIO 1.6
[2016-10-07 01:48] VITALS: O2SAT 92
[2016-10-07] MEDS ORDERED: HEPARIN IV BOLUS 2,000 UNIT in SYRINGE 0 ML IV ONE ×2 (02:00→17:15)
[2016-10-07] MEDS: HEPARIN 25,000 UNIT/500ML D5W 500 ML IV PRN ×4 (02:15→16:25)
[2016-10-07 07:46] VITALS: BP 96/62; PULSE 84; TEMP 36.4; O2SAT 95
[2016-10-07 08:00] VITALS: O2SAT 95
[2016-10-07 08:15] LABS: BASO % 0.2 %; BASO ABS # 0.01 K/uL (0-0.2); COMPLETE YES; EOS % 0.4 %; HEMATOCRIT 32.1 % (37-47); IG% 0.4 %; LYMPH % 12.3 %; LYMPH ABS # 0.67 K/uL (1.2-3.4); MEAN CELL VOLUME 83.4 fL (80-100); MEAN CORPUSCULAR HEMOGLOBIN 26.2 pg (25-34); MEAN CORPUSCULAR HGB CONC 31.5 g/dl (32-36); MEAN PLATELET VOLUME 9.6 fL (7.4-10.4); MONO % 5.9 %; NEUT % 80.8 %; PLATELET COUNT 322 K/uL (130-400); RED BLOOD COUNT 3.85 M/uL (4.2-5.4); WHITE BLOOD COUNT 5.43 K/uL (4.8-10.8)
[2016-10-07 08:23] LABS: INR 1.1 (0.9-1.1); PARTIAL THROMBOPLASTIN RATIO 1.5; PROTHROMBIN TIME (PATIENT) 11.9 SECONDS (9.0-12.0)
[2016-10-07 08:44] LABS: BUN/CREATININE RATIO 28.3 (10-20); CALCIUM 8.1 mg/dl (8.5-10.1); CREATININE 0.58 mg/dl (0.60-1.20); POTASSIUM 3.6 mmol/L (3.5-5.1)
[2016-10-07] MEDS: PANTOprazole SOD 40 MG TAB PO SCH (09:00)
[2016-10-07] MEDS: LISINOPRIL 2.5 MG TAB PO SCH (09:00)
[2016-10-07] MEDS: BOOST VANILLA PO SCH ×6 (09:44→17:38)
[2016-10-07] MEDS ORDERED: HEPARIN IV BOLUS 3,000 UNIT in SYRINGE 0 ML IV ONE (09:45)
[2016-10-07 15:22] VITALS: BP 98/67; PULSE 94; TEMP 36.9; O2SAT 91
[2016-10-07 15:55] LABS: PARTIAL THROMBOPLASTIN RATIO 1.8
[2016-10-07] MEDS: WARFARIN SOD 5 MG TAB PO SCH (17:15)
--- NOTE | 2016-10-07 18:30 | Progress Note ---
Medicine Progress Note Date & Time of Visit: Oct 07, 2016 at 18:25. Subjective Pt was seen and examined lying in bed comfortable with no distress Pt said that she feels fine denies any chest pain, palpitation, dizziness and sob Objective Last 8 Hrs Date Time Temp Pulse Resp B/P Pulse Ox O2 Delivery O2 Flow Rate FiO2 10/07/16 16:00 Nasal Cannula 2.0 10/07/16 15:22 36.9 94 18 98/67 91 Nasal Cannula 3.0 Physical Exam: General- No acute distress Head- atraumatic Eyes- PERRL, EOMI ENT- oropharynx clear Neck- supple, no JVD Lungs- No wheezing, no crackles Heart- regular rhythm; no murmur Abdomen- normal bowel sounds, soft, Extremities- no calf tenderness Neuro- alert, awake, PERRL, EOMI Skin- warm & dry Laboratory Results: Last 24 Hours Test 10/06/16 23:30 10/07/16 08:05 10/07/16 15:32 Activated Partial Thromboplast Time 42.1 SECONDS 40.1 SECONDS 45.8 SECONDS Partial Thromboplastin Ratio 1.6 1.5 1.8 White Blood Count 5.43 K/uL Red Blood Count 3.85 M/uL Hemoglobin 10.1 g/dL Hematocrit 32.1 % Mean Corpuscular Volume 83.4 fL Mean Corpuscular Hemoglobin 26.2 pg Mean Corpuscular Hemoglobin Concent 31.5 g/dl Platelet Count 322 K/uL Mean Platelet Volume 9.6 fL Neutrophils (%) (Auto) 80.8 % Lymphocytes (%) (Auto) 12.3 % Monocytes (%) (Auto) 5.9 % Eosinophils (%) (Auto) 0.4 % Basophils (%) (Auto) 0.2 % Neutrophils # (Auto) 4.39 K/uL Lymphocytes # (Auto) 0.67 K/uL Monocytes # (Auto) 0.32 K/uL Eosinophils # (Auto) 0.02 K/uL Basophils # (Auto) 0.01 K/uL RDW Standard Deviation 54.4 fL RDW Coefficient of Variation 17.7 % Immature Granulocyte % (Auto) 0.4 % Immature Granulocyte # (Auto) 0.02 K/uL Prothrombin Time 11.9 SECONDS Prothromb Time International Ratio 1.1 Sodium Level 141 mmol/L Potassium Level 3.6 mmol/L Chloride Level 107 mmol/L Carbon Dioxide Level 23 mmol/L Anion Gap 11.0 mmol/L Blood Urea Nitrogen 16 mg/dl Creatinine 0.58 mg/dl Est Creatinine Clear Calc Drug Dose 59.7 ml/min Estimated GFR () 112.9 Estimated GFR (Non- 97.4 BUN/Creatinine Ratio 28.3 Random Glucose 105 mg/dl Calcium Level 8.1 mg/dl Assessment & Plan ACUTE DVT RLE Outpatient venous doppler of LE on 10/05/16 showed Right lower extremity deep venous thrombosis Was started on heparin drip. coumadin 5 mg start today May not be a good candidate for anticoagulation due to anemia, liver cirrhosis and non compliant Live alone with intellectual disability Pt should be placed to a retirement if she will be discharged on coumadin because she will not be able to follow direction with coumadin dosage Pt will stay in the hospital until INR therapeutic with heparin drip, goal INR btw 2-3 I spoke to pt aid, she said that the do not train to give medication (she will not be able to give lovenox) Also aid said pt sometimes refused to take med. If she cannot comply or if bleeding occurs, will consider IVC filter in the future. 3/4 Continue heparin drip continue coumadin 5 mg will continue monitor INR HYPOXIA Hypoxic on RA in ER; not on home O2 CTA chest negative for PE; + moderate pleural effusions with bibasilar consolidation, likely atelectasis, correlate clinically for pneumonia Low clinical suspicion for pneumonia; +low grade temp 37.6 in ER; no leukocytosis, no recent cough/ sob Will not start on abx as per aid, pt saw a public policy professor in [place], that start her on oxygen they waiting for the [employer] to send her oxygen continue supplement oxygen Stable ELEVATED TROPONIN Denies chest pain EKG nonspecific T wave abnormality Troponin trend down stable ANEMIA Hg on admission 9.7; was 10's as outpatient for past month No active bleeding Hemoccult done in the ER before starting heparin drip was negative Hgb today was 10.1 stable STAGE IV PANCREATIC CANCER Follows with Dr. Parker As per clinic note patient's sister Jessica Christianson declined palliative chemotherapy and opted for palliative care MALIGNANT ASCITES S/p therapeutic paracentesis on 10/05/16 stable HYPERTENSION Episodic hypotension in ER has not been taking lisinopril as per aid Hold lisinopril due to BP in the low side DISPOSITION She will need placement Follows with Pamela Kim PA-C for primary care and Dr. Parker for oncology Current Inpatient Medications: Current Inpatient Medications Medications (Trade) Dose Ordered Sig/Junior Route Start Time Stop Time Status Last Admin Dose Admin Ioversol (Optiray 320) 125 ml UD PRN IV 10/05/16 17:30 10/09/16 17:29 Acetaminophen (Tylenol Tab) 325 mg Q6H PRN PO 10/05/16 20:30 11/04/16 20:29 Tramadol HCl (Ultram Tab) 25 mg Q6H PRN PO 10/05/16 21:45 11/04/16 21:44 Morphine Sulfate (MoRPHine SULFATE INJ) 2 mg Q4H PRN IV 10/05/16 21:45 10/19/16 21:44 Ondansetron HCl (Zofran Inj) 4 mg Q6H PRN IV 10/05/16 21:45 11/04/16 21:44 Lisinopril (Zestril Tab) 2.5 mg DAILY PO 10/06/16 09:00 11/05/16 08:59 Pantoprazole Sodium 40 mg 40 mg QAM PO 10/06/16 09:00 11/05/16 08:59 10/06/16 08:59 40 MG Heparin Sodium/ Dextrose (Heparin 25,000 Unit/500ml D5W) 500 ml @ 18 mls/hr Q24H PRN IV 10/06/16 01:30 11/05/16 01:29 10/07/16 16:25 18 MLS/HR Enteral Nutritional Formula (Boost) 1 can TIDM PO 10/06/16 12:00 11/05/16 11:59 10/07/16 17:38 1 CAN Warfarin Sodium (Coumadin Tab) 5 mg DAILY@16 PO 10/07/16 16:00 11/06/16 15:59 10/07/16 17:15 5 MG
[2016-10-07 23:57] VITALS: BP 99/70; PULSE 90; TEMP 36.6; O2SAT 91
[2016-10-08 07:26] LABS: BASO % 0.2 %; BASO ABS # 0.01 K/uL (0-0.2); COMPLETE YES; EOS % 0.6 %; HEMATOCRIT 30.7 % (37-47); IG% 0.4 %; LYMPH % 11.6 %; LYMPH ABS # 0.58 K/uL (1.2-3.4); MEAN CELL VOLUME 81.6 fL (80-100); MEAN CORPUSCULAR HEMOGLOBIN 25.3 pg (25-34); MEAN CORPUSCULAR HGB CONC 30.9 g/dl (32-36); MEAN PLATELET VOLUME 9.1 fL (7.4-10.4); MONO % 6.8 %; NEUT % 80.4 %; PLATELET COUNT 300 K/uL (130-400); RED BLOOD COUNT 3.76 M/uL (4.2-5.4); WHITE BLOOD COUNT 4.99 K/uL (4.8-10.8)
[2016-10-08 07:41] LABS: INR 1.2 (0.9-1.1); PARTIAL THROMBOPLASTIN RATIO 1.7; PROTHROMBIN TIME (PATIENT) 12.7 SECONDS (9.0-12.0)
[2016-10-08] MEDS: BOOST VANILLA PO SCH ×6 (07:55→17:15)
[2016-10-08] MEDS: HEPARIN 25,000 UNIT/500ML D5W 500 ML IV PRN ×2 (08:00→16:35)
[2016-10-08 08:07] VITALS: BP 104/68; PULSE 79; TEMP 36.5; O2SAT 94
[2016-10-08] MEDS ORDERED: HEPARIN IV BOLUS 2,000 UNIT in SYRINGE 0 ML IV ONE (08:15)
[2016-10-08] MEDS: LISINOPRIL 2.5 MG TAB PO SCH (08:29)
[2016-10-08] MEDS: PANTOprazole SOD 40 MG TAB PO SCH (08:29)
--- NOTE | 2016-10-08 12:13 | Progress Note ---
Medicine Progress Note Date & Time of Visit: Oct 08, 2016 at 12:09. Subjective Pt was seen and examined Lying in bed with no distress Pt said that she feels fine denies any complaint Objective Last 8 Hrs Date Time Temp Pulse Resp B/P Pulse Ox O2 Delivery O2 Flow Rate FiO2 10/08/16 08:07 36.5 79 18 104/68 94 Nasal Cannula 3.0 10/08/16 08:00 Nasal Cannula 2.0 Physical Exam: General- No acute distress Head- atraumatic Eyes- PERRL, EOMI ENT- oropharynx clear Neck- supple, no JVD Lungs- No wheezing, no crackles Heart- regular rhythm; no murmur Abdomen- normal bowel sounds, soft, Extremities- no calf tenderness Neuro- alert, awake, PERRL, EOMI Skin- warm & dry Laboratory Results: Last 24 Hours Test 10/07/16 15:32 10/07/16 23:30 10/08/16 07:15 Activated Partial Thromboplast Time 45.8 SECONDS 51.3 SECONDS 43.2 SECONDS Partial Thromboplastin Ratio 1.8 2.0 1.7 White Blood Count 4.99 K/uL Red Blood Count 3.76 M/uL Hemoglobin 9.5 g/dL Hematocrit 30.7 % Mean Corpuscular Volume 81.6 fL Mean Corpuscular Hemoglobin 25.3 pg Mean Corpuscular Hemoglobin Concent 30.9 g/dl Platelet Count 300 K/uL Mean Platelet Volume 9.1 fL Neutrophils (%) (Auto) 80.4 % Lymphocytes (%) (Auto) 11.6 % Monocytes (%) (Auto) 6.8 % Eosinophils (%) (Auto) 0.6 % Basophils (%) (Auto) 0.2 % Neutrophils # (Auto) 4.01 K/uL Lymphocytes # (Auto) 0.58 K/uL Monocytes # (Auto) 0.34 K/uL Eosinophils # (Auto) 0.03 K/uL Basophils # (Auto) 0.01 K/uL RDW Standard Deviation 52.2 fL RDW Coefficient of Variation 17.5 % Immature Granulocyte % (Auto) 0.4 % Immature Granulocyte # (Auto) 0.02 K/uL Prothrombin Time 12.7 SECONDS Prothromb Time International Ratio 1.2 Assessment & Plan ACUTE DVT RLE Outpatient venous doppler of LE on 10/05/16 showed Right lower extremity deep venous thrombosis Was started on heparin drip. coumadin 5 mg start today May not be a good candidate for anticoagulation due to anemia, liver cirrhosis and non compliant Live alone with intellectual disability Pt should be placed to a [facility] if she will be discharged on coumadin because she will not be able to follow direction with coumadin dosage Pt will stay in the hospital until INR therapeutic with heparin drip, goal INR btw 2-3 I spoke to pt aid, she said that the do not train to give medication (she will not be able to give lovenox) Also aid said pt sometimes refused to take med. If she cannot comply or if bleeding occurs, will consider IVC filter in the future. 10/08 Continue heparin drip INR Goal btw 2 to 3 will give coumadin 7.5 mg today INR 1.2 today will continue monitor INR HYPOXIA Hypoxic on RA in ER; not on home O2 CTA chest negative for PE; + moderate pleural effusions with bibasilar consolidation, likely atelectasis, correlate clinically for pneumonia Low clinical suspicion for pneumonia; +low grade temp 37.6 in ER; no leukocytosis, no recent cough/ sob Will not start on abx as per aid, pt saw a olive brine tester in [place], that start her on oxygen they waiting for the company to send her oxygen continue supplement oxygen Stable ELEVATED TROPONIN Denies chest pain EKG nonspecific T wave abnormality Troponin trend down stable ANEMIA Hg on admission 9.7; was 10's as outpatient for past month No active bleeding Hemoccult done in the ER before starting heparin drip was negative Hgb today was 9.5 stable STAGE IV PANCREATIC CANCER Follows with Dr. Parker As per clinic note patient's sister Jessica Christianson declined palliative chemotherapy and opted for palliative care MALIGNANT ASCITES S/p therapeutic paracentesis on 10/05/16 stable HYPERTENSION Episodic hypotension in ER has not been taking lisinopril as per aid Hold lisinopril due to BP in the low side Stable DISPOSITION She will need placement Follows with Pamela Kim PA-C for primary care and Dr. Parker for oncology Current Inpatient Medications: Current Inpatient Medications Medications (Trade) Dose Ordered Sig/Junior Route Start Time Stop Time Status Last Admin Dose Admin Ioversol (Optiray 320) 125 ml UD PRN IV 10/05/16 17:30 10/09/16 17:29 Acetaminophen (Tylenol Tab) 325 mg Q6H PRN PO 10/05/16 20:30 11/04/16 20:29 Tramadol HCl (Ultram Tab) 25 mg Q6H PRN PO 10/05/16 21:45 11/04/16 21:44 Morphine Sulfate (MoRPHine SULFATE INJ) 2 mg Q4H PRN IV 10/05/16 21:45 10/19/16 21:44 Ondansetron HCl (Zofran Inj) 4 mg Q6H PRN IV 10/05/16 21:45 11/04/16 21:44 Lisinopril (Zestril Tab) 2.5 mg DAILY PO 10/06/16 09:00 11/05/16 08:59 10/08/16 08:29 2.5 MG Pantoprazole Sodium 40 mg 40 mg QAM PO 10/06/16 09:00 11/05/16 08:59 10/08/16 08:29 40 MG Heparin Sodium/ Dextrose (Heparin 25,000 Unit/500ml D5W) 500 ml @ 19 mls/hr Q24H PRN IV 10/06/16 01:30 11/05/16 01:29 10/08/16 08:00 19 MLS/HR Enteral Nutritional Formula (Boost) 1 can TIDM PO 10/06/16 12:00 11/05/16 11:59 10/08/16 07:55 1 CAN Warfarin Sodium (Coumadin Tab) 5 mg DAILY@16 PO 10/07/16 16:00 11/06/16 15:59 10/07/16 17:15 5 MG
[2016-10-08 15:10] LABS: PARTIAL THROMBOPLASTIN RATIO 1.9
[2016-10-08 15:35] VITALS: BP 100/70; PULSE 86; TEMP 36.7; O2SAT 92
[2016-10-08] MEDS: WARFARIN SOD 5 MG TAB PO SCH (15:38)
[2016-10-08] MEDS ORDERED: WARFARIN SOD 2.5 MG TAB PO ONE (16:00)
[2016-10-09 00:34] VITALS: BP 100/71; PULSE 76; TEMP 36.5; O2SAT 92
[2016-10-09 04:48] LABS: BASO % 0.2 %; BASO ABS # 0.01 K/uL (0-0.2); COMPLETE YES; EOS % 0.7 %; HEMATOCRIT 29.3 % (37-47); IG% 0.5 %; LYMPH % 13.6 %; MEAN CELL VOLUME 83.7 fL (80-100); MEAN CORPUSCULAR HGB CONC 31.1 g/dl (32-36); MEAN PLATELET VOLUME 9.4 fL (7.4-10.4); MONO % 8.9 %; NEUT % 76.1 %; PLATELET COUNT 300 K/uL (130-400); WHITE BLOOD COUNT 5.87 K/uL (4.8-10.8)
[2016-10-09 05:12] LABS: INR 1.7 (0.9-1.1); PARTIAL THROMBOPLASTIN RATIO 2.5
[2016-10-09 07:57] VITALS: BP 101/64; PULSE 83; TEMP 37; O2SAT 98
[2016-10-09] MEDS: PANTOprazole SOD 40 MG TAB PO SCH (08:26)
[2016-10-09] MEDS: LISINOPRIL 2.5 MG TAB PO SCH (08:27)
[2016-10-09] MEDS: BOOST VANILLA PO SCH ×6 (08:28→16:57)
[2016-10-09 09:58] VITALS: O2SAT 98
[2016-10-09 14:09] VITALS: BP 103/73; PULSE 92; TEMP 36.4; O2SAT 94
--- NOTE | 2016-10-09 15:41 | Progress Note ---
Medicine Progress Note Date & Time of Visit: Oct 09, 2016 at 15:38. Subjective Pt was seen and examined Lying in bed with no distress denies any chest pain, palpitation and sob Objective Last 8 Hrs Date Time Temp Pulse Resp B/P Pulse Ox O2 Delivery O2 Flow Rate FiO2 10/09/16 14:09 36.4 92 20 103/73 94 Nasal Cannula 3.0 10/09/16 09:58 98 Nasal Cannula 3.0 10/09/16 08:00 Nasal Cannula 2.0 10/09/16 07:57 37.0 83 20 101/64 98 Nasal Cannula 3.0 Physical Exam: General- No acute distress Head- atraumatic Eyes- PERRL, EOMI ENT- oropharynx clear Neck- supple, no JVD Lungs- No wheezing, no crackles Heart- regular rhythm; no murmur Abdomen- normal bowel sounds, soft, Extremities- no calf tenderness Neuro- alert, awake, PERRL, EOMI Skin- warm & dry Laboratory Results: Last 24 Hours Test 10/09/16 04:40 White Blood Count 5.87 K/uL Red Blood Count 3.50 M/uL Hemoglobin 9.1 g/dL Hematocrit 29.3 % Mean Corpuscular Volume 83.7 fL Mean Corpuscular Hemoglobin 26.0 pg Mean Corpuscular Hemoglobin Concent 31.1 g/dl Platelet Count 300 K/uL Mean Platelet Volume 9.4 fL Neutrophils (%) (Auto) 76.1 % Lymphocytes (%) (Auto) 13.6 % Monocytes (%) (Auto) 8.9 % Eosinophils (%) (Auto) 0.7 % Basophils (%) (Auto) 0.2 % Neutrophils # (Auto) 4.47 K/uL Lymphocytes # (Auto) 0.80 K/uL Monocytes # (Auto) 0.52 K/uL Eosinophils # (Auto) 0.04 K/uL Basophils # (Auto) 0.01 K/uL RDW Standard Deviation 53.5 fL RDW Coefficient of Variation 17.4 % Immature Granulocyte % (Auto) 0.5 % Immature Granulocyte # (Auto) 0.03 K/uL Prothrombin Time 19.0 SECONDS Prothromb Time International Ratio 1.7 Activated Partial Thromboplast Time 64.3 SECONDS Partial Thromboplastin Ratio 2.5 Assessment & Plan ACUTE DVT RLE Outpatient venous doppler of LE on 10/05/16 showed Right lower extremity deep venous thrombosis Was started on heparin drip. coumadin 5 mg start today May not be a good candidate for anticoagulation due to anemia, liver cirrhosis and non compliant Live alone with intellectual disability Pt [facility] a [facility] if she will be discharged on coumadin because she will not be able to follow direction with coumadin dosage Pt will stay in the hospital until INR therapeutic with heparin drip, goal INR btw 2-3 I spoke to pt aid, she said that the do not train to give medication (she will not be able to give lovenox) Also aid said pt sometimes refused to take med. If she cannot comply or if bleeding occurs, will consider IVC filter in the future. 10/09 Continue heparin drip INR Goal btw 2 to 3 will give coumadin 5 mg today INR 1.7 today will continue monitor INR HYPOXIA Hypoxic on RA in ER; not on home O2 CTA chest negative for PE; + moderate pleural effusions with bibasilar consolidation, likely atelectasis, correlate clinically for pneumonia Low clinical suspicion for pneumonia; +low grade temp 37.6 in ER; no leukocytosis, no recent cough/ sob Will not start on abx as per aid, pt saw a twister tender in [place], that start her on oxygen they waiting for the company to send her oxygen continue supplement oxygen Stable ELEVATED TROPONIN Denies chest pain EKG nonspecific T wave abnormality Troponin trend down stable ANEMIA Hg on admission 9.7; was 10's as outpatient for past month No active bleeding Hemoccult done in the ER before starting heparin drip was negative Hgb today was 9.5 stable STAGE IV PANCREATIC CANCER Follows with Dr. Parker As per clinic note patient's sister Jessica Christianson declined palliative chemotherapy and opted for palliative care MALIGNANT ASCITES S/p therapeutic paracentesis on 10/05/16 stable HYPERTENSION Episodic hypotension in ER has not been taking lisinopril as per aid Hold lisinopril due to BP in the low side Stable DISPOSITION discharge when INR is at goal will need placement Follows with Pamela Kim PA-C for primary care and Dr. Parker for oncology Current Inpatient Medications: Current Inpatient Medications Medications (Trade) Dose Ordered Sig/Junior Route Start Time Stop Time Status Last Admin Dose Admin Ioversol (Optiray 320) 125 ml UD PRN IV 10/05/16 17:30 10/09/16 17:29 Acetaminophen (Tylenol Tab) 325 mg Q6H PRN PO 10/05/16 20:30 11/04/16 20:29 Tramadol HCl (Ultram Tab) 25 mg Q6H PRN PO 10/05/16 21:45 11/04/16 21:44 Morphine Sulfate (MoRPHine SULFATE INJ) 2 mg Q4H PRN IV 10/05/16 21:45 10/19/16 21:44 Ondansetron HCl (Zofran Inj) 4 mg Q6H PRN IV 10/05/16 21:45 11/04/16 21:44 Lisinopril (Zestril Tab) 2.5 mg DAILY PO 10/06/16 09:00 11/05/16 08:59 10/09/16 08:27 2.5 MG Pantoprazole Sodium 40 mg 40 mg QAM PO 10/06/16 09:00 11/05/16 08:59 10/09/16 08:26 40 MG Heparin Sodium/ Dextrose (Heparin 25,000 Unit/500ml D5W) 500 ml @ 19 mls/hr Q24H PRN IV 10/06/16 01:30 11/05/16 01:29 10/08/16 16:35 19 MLS/HR Enteral Nutritional Formula (Boost) 1 can TIDM PO 10/06/16 12:00 11/05/16 11:59 10/09/16 08:28 1 CAN Warfarin Sodium (Coumadin Tab) 5 mg DAILY@16 PO 10/07/16 16:00 11/06/16 15:59 10/08/16 15:38 5 MG
[2016-10-09] MEDS: WARFARIN SOD 5 MG TAB PO SCH (16:54)
[2016-10-09] MEDS: HEPARIN 25,000 UNIT/500ML D5W 500 ML IV PRN (17:30)
[2016-10-10 00:02] VITALS: BP 94/67; PULSE 82; TEMP 37.1; O2SAT 91
[2016-10-10 06:59] VITALS: BP 96/66; PULSE 86; TEMP 36.9; O2SAT 94
[2016-10-10 08:11] LABS: BASO % 0.2 %; BASO ABS # 0.01 K/uL (0-0.2); COMPLETE YES; EOS % 0.5 %; HEMATOCRIT 30.8 % (37-47); IG% 0.3 %; LYMPH ABS # 0.74 K/uL (1.2-3.4); MEAN CELL VOLUME 83.5 fL (80-100); MEAN CORPUSCULAR HEMOGLOBIN 25.7 pg (25-34); MEAN CORPUSCULAR HGB CONC 30.8 g/dl (32-36); MONO % 5.3 %; NEUT % 81.7 %; PLATELET COUNT 345 K/uL (130-400); RED BLOOD COUNT 3.69 M/uL (4.2-5.4); WHITE BLOOD COUNT 6.18 K/uL (4.8-10.8)
[2016-10-10 08:37] LABS: PARTIAL THROMBOPLASTIN RATIO 3.3
[2016-10-10] MEDS: LISINOPRIL 2.5 MG TAB PO SCH (08:48)
[2016-10-10] MEDS: PANTOprazole SOD 40 MG TAB PO SCH (08:49)
[2016-10-10] MEDS: BOOST VANILLA PO SCH ×6 (08:50→16:20)
[2016-10-10] MEDS ORDERED: CYANOCOBALAMIN 1000 MCG/ML VIAL IM ONE (09:15)
[2016-10-10] MEDS: HEPARIN 25,000 UNIT/500ML D5W 500 ML IV PRN ×3 (09:28→22:44)
[2016-10-10 10:32] LABS: PROTHROMBIN TIME (PATIENT) 33.8 SECONDS (9.0-12.0)
--- NOTE | 2016-10-10 11:27 | Progress Note ---
Internal Med Progress Note Date of Service: Oct 10, 2016. Provider Documentation: SUBJECTIVE: Patient is lying in her bed and is awake. In no apparent distress. Denies any SOB or pain in the affected lowe extremity. Remains afebrile,. Oral intake is reasonable. Moving her bowels. OBJECTIVE: Vital Signs-as noted below Examination: General- Awake and is in no acute distress Head- atraumatic Eyes- PERRL, EOMI ENT- Ears, Nose & Throat are normal. Neck- Supple, Central trachea, No JVD Lungs-B/L Moderate air entry, Almost clear to auscultation. Heart- Regular rhythm;Normal S1,S2, no murmur Abdomen- Soft, Non-tender, normal bowel sounds Extremities- No calf tenderness Neuro- alert, awake, PERRL, EOMI Skin- warm & dry Lab data as noted below. ASSESSMENT & PLAN: Acute DVT Right Lower Extremity: Clinically & hemodynamically doing well. Outpatient venous doppler of LE on 10/05/16 showed Right lower extremity DVT. -Continue Heparin & Coumadin. -INR is 3.0 so decreased Coumadin to 4.0 Mg today. Hypoxia: Resolved.Was found to be Hypoxic on RA in ER; not on home O2. Clinically stable now. CTA chest negative for PE; + moderate pleural effusions with bibasilar consolidation, likely atelectasis, correlate clinically for pneumonia Low clinical suspicion for pneumonia; +low grade temp 37.6 in ER; no leukocytosis, no recent cough/ sob As per aid, pt saw a [employer] infrastructure consultant in [place], that start her on oxygen & they are waiting for the company to send her oxygen continue supplement oxygen Elevated Troponin: Trending downwards now.Denies chest pain -EKG nonspecific T wave abnormality Anemia: Hg on admission 9.7; was 10's as outpatient for past month. No active bleeding -Hemoccult done in the ER before starting heparin drip was negative -Hgb today was 9.5 -Started B12 & Folate supplementation as their levels are low. Stage IV Pancreatic Cancer: Follows with Dr. Parker As per clinic note patient's sister Jessica Christianson declined palliative chemotherapy and opted for palliative care Malignant Ascites: Stable. S/p therapeutic paracentesis on 10/05/16 History HTN: Episodic hypotension in ER. She has not been taking lisinopril as per aid -Holding lisinopril due to BP in the low side Code Status: Patient is DNR. Disposition: Discharge when INR is at goal. Follows with Pamela Kim PA-C for primary care and Dr. Parker for oncology Pt should be placed to a long-term if she will be discharged on Coumadin because she will not be able to follow direction with Coumadin dosage Pt will stay in the hospital until INR therapeutic with heparin drip, goal INR btw 2-3 I spoke to pt aid, she said that the do not train to give medication (she will not be able to give Lovenox) Also aid said pt sometimes refused to take med. If she cannot comply or if bleeding occurs, will consider IVC filter in the future. Vital Signs: Date Time Temp Pulse Resp B/P Pulse Ox O2 Delivery O2 Flow Rate FiO2 10/10/16 08:00 Nasal Cannula 2.0 10/10/16 06:59 36.9 86 16 96/66 94 Nasal Cannula 3.0 10/10/16 00:02 37.1 82 16 94/67 91 2.0 10/10/16 00:00 Nasal Cannula 2.0 10/09/16 20:00 Nasal Cannula 2.0 10/09/16 16:00 Nasal Cannula 2.0 10/09/16 14:09 36.4 92 20 103/73 94 Nasal Cannula 3.0 Lab Results: Results Past 24 Hours Test 10/10/16 07:35 Range/Units White Blood Count 6.18 4.8-10.8 K/uL Red Blood Count 3.69 4.2-5.4 M/uL Hemoglobin 9.5 12.0-16.0 g/dL Hematocrit 30.8 37-47 % Mean Corpuscular Volume 83.5 80-100 fL Mean Corpuscular Hemoglobin 25.7 25-34 pg Mean Corpuscular Hemoglobin Concent 30.8 32-36 g/dl Platelet Count 345 130-400 K/uL Mean Platelet Volume 10.0 7.4-10.4 fL Neutrophils (%) (Auto) 81.7 % Lymphocytes (%) (Auto) 12.0 % Monocytes (%) (Auto) 5.3 % Eosinophils (%) (Auto) 0.5 % Basophils (%) (Auto) 0.2 % Neutrophils # (Auto) 5.05 1.4-6.5 K/uL Lymphocytes # (Auto) 0.74 1.2-3.4 K/uL Monocytes # (Auto) 0.33 0.11-0.59 K/uL Eosinophils # (Auto) 0.03 0-0.5 K/uL Basophils # (Auto) 0.01 0-0.2 K/uL RDW Standard Deviation 53.9 36.4-46.3 fL RDW Coefficient of Variation 17.7 11.5-14.5 % Immature Granulocyte % (Auto) 0.3 % Immature Granulocyte # (Auto) 0.02 0.00-0.02 K/uL Prothrombin Time 33.8 9.0-12.0 SECONDS Prothromb Time International Ratio 3.0 0.9-1.1 Activated Partial Thromboplast Time 86.1 21.0-31.0 SECONDS Partial Thromboplastin Ratio 3.3
[2016-10-10 14:53] VITALS: BP 97/63; PULSE 93; TEMP 36.9; O2SAT 91
[2016-10-10] MEDS ORDERED: WARFARIN SOD 4 MG TAB PO SCH (16:00)
[2016-10-10 16:08] LABS: PARTIAL THROMBOPLASTIN RATIO 3.4
[2016-10-11] LABS: PARTIAL THROMBOPLASTIN RATIO 2.9
[2016-10-11 00:10] VITALS: BP 99/65; PULSE 87; TEMP 37.2; O2SAT 92
[2016-10-11 06:34] LABS: BASO % 0.2 %; BASO ABS # 0.01 K/uL (0-0.2); COMPLETE YES; EOS % 0.7 %; HEMATOCRIT 29.8 % (37-47); IG% 0.3 %; LYMPH % 13.4 %; LYMPH ABS # 0.78 K/uL (1.2-3.4); MEAN CELL VOLUME 82.5 fL (80-100); MEAN CORPUSCULAR HGB CONC 31.5 g/dl (32-36); MEAN PLATELET VOLUME 9.4 fL (7.4-10.4); MONO % 6.9 %; NEUT % 78.5 %; PLATELET COUNT 319 K/uL (130-400); RED BLOOD COUNT 3.61 M/uL (4.2-5.4); WHITE BLOOD COUNT 5.83 K/uL (4.8-10.8)
[2016-10-11 06:55] LABS: INR 3.7 (0.9-1.1); PROTHROMBIN TIME (PATIENT) 41.5 SECONDS (9.0-12.0)
[2016-10-11] MEDS: HEPARIN 25,000 UNIT/500ML D5W 500 ML IV PRN (07:00)
[2016-10-11 08:19] VITALS: BP 100/69; PULSE 72; TEMP 36.7; O2SAT 100
[2016-10-11 09:00] VITALS: O2SAT 100
[2016-10-11] MEDS: LISINOPRIL 2.5 MG TAB PO SCH (09:00)
[2016-10-11] MEDS: BOOST VANILLA PO SCH ×6 (09:02→17:15)
[2016-10-11] MEDS: PANTOprazole SOD 40 MG TAB PO SCH (09:03)
[2016-10-11] MEDS: CYANOCOBALAMIN 500 MCG TAB (VIT B-12) PO SCH (09:03)
[2016-10-11 09:43] VITALS: O2SAT 100
--- NOTE | 2016-10-11 12:42 | Progress Note ---
Internal Med Progress Note Date of Service: Oct 11, 2016. Provider Documentation: SUBJECTIVE: Patient is lying in her bed and is awake. In no apparent distress. Denies any SOB or pain in the affected lower extremity. Remains afebrile,. Oral intake is reasonable. Moving her bowels. OBJECTIVE: Vital Signs-as noted below Examination: General- Awake and is in no acute distress Head- atraumatic Eyes- PERRL, EOMI ENT- Ears, Nose & Throat are normal. Neck- Supple, Central trachea, No JVD Lungs-B/L Moderate air entry, Almost clear to auscultation. Heart- Regular rhythm;Normal S1,S2, no murmur Abdomen- Soft, Non-tender, normal bowel sounds Extremities- No calf tenderness Neuro- alert, awake, PERRL, EOMI Skin- warm & dry Lab data as noted below. ASSESSMENT & PLAN: Acute DVT Right Lower Extremity: Clinically & hemodynamically doing well. Outpatient venous Doppler of LE on 10/05/16 showed Right lower extremity DVT. -D/C Heparin & continue Coumadin. -INR is 3.7 so am holding Coumadin today. Hypoxia: Resolved.Was found to be Hypoxic on RA in ER; not on home O2. Clinically stable now. CTA chest negative for PE; + moderate pleural effusions with bibasilar consolidation, likely atelectasis, correlate clinically for pneumonia Low clinical suspicion for pneumonia; +low grade temp 37.6 in ER; no leukocytosis, no recent cough/ sob As per aid, pt saw a pharmacy grad intern in [place], that start her on oxygen & they are waiting for the company to send her oxygen continue supplement oxygen Elevated Troponin: Trending downwards now.Denies chest pain -EKG nonspecific T wave abnormality Anemia: Hg on admission 9.7; was 10's as outpatient for past month. No active bleeding -Hemoccult done in the ER before starting heparin drip was negative -Hgb today was 9.5 -Started B12 & Folate supplementation as their levels are low. Stage IV Pancreatic Cancer: Follows with Dr. Parker As per clinic note patient's sister Jessica Christianson declined palliative chemotherapy and opted for palliative care Malignant Ascites: Stable. S/p therapeutic paracentesis on 10/05/16 History HTN: Episodic hypotension in ER. She has not been taking lisinopril as per aid -Holding lisinopril due to BP in the low side Code Status: Patient is DNR. Disposition: Discharge when INR is at goal. [facility] has been involved. Follows with Pamela Kim PA-C for primary care and Dr. Parker for oncology Pt should be placed to a assisted if she will be discharged on Coumadin because she will not be able to follow direction with Coumadin dosage Pt will stay in the hospital until INR therapeutic with heparin drip, goal INR btw 2-3 I spoke to pt aid, she said that the do not train to give medication (she will not be able to give Lovenox) Also aid said pt sometimes refused to take med. If she cannot comply or if bleeding occurs, will consider IVC filter in the future. Vital Signs: Date Time Temp Pulse Resp B/P Pulse Ox O2 Delivery O2 Flow Rate FiO2 10/11/16 09:43 100 Nasal Cannula 4.0 10/11/16 09:00 36 100 Nasal Cannula 4.0 10/11/16 08:19 36.7 72 36 100/69 100 Nasal Cannula 4.0 10/11/16 08:00 Nasal Cannula 2.0 10/11/16 00:10 37.2 87 16 99/65 92 3.0 10/11/16 00:00 Nasal Cannula 2.0 10/10/16 20:00 Nasal Cannula 2.0 10/10/16 16:00 Nasal Cannula 2.0 10/10/16 14:53 36.9 93 18 97/63 91 Nasal Cannula 3.0 Lab Results: Results Past 24 Hours Test 10/10/16 15:30 10/10/16 23:20 10/11/16 06:25 Range/Units Activated Partial Thromboplast Time 88.4 74.8 77.2 21.0-31.0 SECONDS Partial Thromboplastin Ratio 3.4 2.9 3.0 White Blood Count 5.83 4.8-10.8 K/uL Red Blood Count 3.61 4.2-5.4 M/uL Hemoglobin 9.4 12.0-16.0 g/dL Hematocrit 29.8 37-47 % Mean Corpuscular Volume 82.5 80-100 fL Mean Corpuscular Hemoglobin 26.0 25-34 pg Mean Corpuscular Hemoglobin Concent 31.5 32-36 g/dl Platelet Count 319 130-400 K/uL Mean Platelet Volume 9.4 7.4-10.4 fL Neutrophils (%) (Auto) 78.5 % Lymphocytes (%) (Auto) 13.4 % Monocytes (%) (Auto) 6.9 % Eosinophils (%) (Auto) 0.7 % Basophils (%) (Auto) 0.2 % Neutrophils # (Auto) 4.58 1.4-6.5 K/uL Lymphocytes # (Auto) 0.78 1.2-3.4 K/uL Monocytes # (Auto) 0.40 0.11-0.59 K/uL Eosinophils # (Auto) 0.04 0-0.5 K/uL Basophils # (Auto) 0.01 0-0.2 K/uL RDW Standard Deviation 53.6 36.4-46.3 fL RDW Coefficient of Variation 17.7 11.5-14.5 % Immature Granulocyte % (Auto) 0.3 % Immature Granulocyte # (Auto) 0.02 0.00-0.02 K/uL Prothrombin Time 41.5 9.0-12.0 SECONDS Prothromb Time International Ratio 3.7 0.9-1.1
[2016-10-11 15:52] VITALS: BP 111/75; PULSE 98; TEMP 36.6; O2SAT 91
[2016-10-11 16:00] VITALS: O2SAT 91
[2016-10-12] VITALS: BP 104/69; PULSE 88; TEMP 36.8; O2SAT 91
[2016-10-12 06:10] LABS: BASO % 0.2 %; BASO ABS # 0.01 K/uL (0-0.2); COMPLETE YES; EOS % 0.5 %; HEMATOCRIT 30.2 % (37-47); IG% 0.5 %; LYMPH % 12.3 %; LYMPH ABS # 0.75 K/uL (1.2-3.4); MEAN CELL VOLUME 81.6 fL (80-100); MEAN CORPUSCULAR HEMOGLOBIN 25.1 pg (25-34); MEAN CORPUSCULAR HGB CONC 30.8 g/dl (32-36); MEAN PLATELET VOLUME 9.4 fL (7.4-10.4); MONO % 6.4 %; NEUT % 80.1 %; PLATELET COUNT 354 K/uL (130-400); WHITE BLOOD COUNT 6.12 K/uL (4.8-10.8)
[2016-10-12 08:04] VITALS: BP 111/80; PULSE 94; TEMP 36.7; O2SAT 99
[2016-10-12] MEDS: PANTOprazole SOD 40 MG TAB PO SCH (08:34)
[2016-10-12] MEDS: LISINOPRIL 2.5 MG TAB PO SCH (08:34)
[2016-10-12] MEDS: CYANOCOBALAMIN 500 MCG TAB (VIT B-12) PO SCH (08:35)
[2016-10-12] MEDS: BOOST VANILLA PO SCH ×6 (08:36→17:15)
[2016-10-12 09:12] LABS: INR 3.3 (0.9-1.1); PROTHROMBIN TIME (PATIENT) 37.5 SECONDS (9.0-12.0)
--- NOTE | 2016-10-12 13:48 | Clinical Documentation Query ---
CLINICAL DOCUMENTATION QUERY Dr. JAUREGUI, In your clinical opinion is this patient being managed for: ( X ) severe protein-calorie malnutrition ( ) Other explanation of clinical findings (Please Explain) ( ) Unable to determine (Please Define) ( ) Need to Discuss ( ) Not Agree The medical record reflects the following clinical findings, treatment, and risk factors. Clinical Indicators: 66 yo female presenting with acute DVT. Dietary consult indicates pt has had a 25 lb wt loss in the past year (20%). Noted to be very thin/cachectic and has poor PO intake (<25%-50% since 10/08/16) Treatment: boost tid, liberalize diet to regular, business office representative consult Risk Factors:pancreatic cancer Chronic Severe Malnutrition Criteria: (2 criteria needed) Energy intake: <75% of estimated energy requirement for > 1 month Wt loss: >5% in 1 month, > 7.5% in 3 months, >10% in 6 months, >20% in 1 year Body fat: severe loss of SQ fat from the orbits, triceps or fat overlying the ribs Muscle mass: severe muscle wasting at the temples, clavicles, shoulders, interosseous spaces, scapula, thigh, calf Fluid accumulation: severe localized or generalized edema of the extremities, vulva, scrotum-wt loss may be masked by edema Please clarify and document your clinical opinion in the progress notes and discharge summary. Terms such as "probable", "suspected", "likely", "questionable", "possible", or "still to be ruled out" are acceptable. IF IN AGREEMENT, YOU MUST DOCUMENT ABOVE DIAGNOSTIC STATEMENT IN DAILY PROGRESS NOTES AND DISCHARGE SUMMARY. This document is not part of the patient's record. Thank You, Mere Shafer, RN [phone]
--- NOTE | 2016-10-12 14:43 | Progress Note ---
Internal Med Progress Note Date of Service: Oct 12, 2016. Provider Documentation: SUBJECTIVE: Patient is lying in her bed and is awake. In no apparent distress. Denies any SOB or pain in the affected lower extremity. Remains afebrile,. Oral intake is reasonable well now. Moving her bowels. OBJECTIVE: Vital Signs-as noted below Examination: General- Awake and is in no acute distress Head- atraumatic Eyes- PERRL, EOMI ENT- Ears, Nose & Throat are normal. Neck- Supple, Central trachea, No JVD Lungs-B/L Moderate air entry, Almost clear to auscultation. Heart- Regular rhythm;Normal S1,S2, no murmur Abdomen- Soft, Non-tender, normal bowel sounds Extremities- No calf tenderness Neuro- alert, awake, PERRL, EOMI Skin- warm & dry Lab data as noted below. ASSESSMENT & PLAN: Acute DVT Right Lower Extremity: Clinically & hemodynamically doing well. Outpatient venous Doppler of LE on 10/05/16 showed Right lower extremity DVT. -D/C Heparin & continue Coumadin. -INR is 3.3 so am holding Coumadin today. Hypoxia: Resolved.Was found to be Hypoxic on RA in ER; not on home O2. Clinically stable now. CTA chest negative for PE; + moderate pleural effusions with bibasilar consolidation, likely atelectasis, correlate clinically for pneumonia Low clinical suspicion for pneumonia; +low grade temp 37.6 in ER; no leukocytosis, no recent cough/ sob As per aid, pt saw a riveter pneumatic in [place], that start her on oxygen & they are waiting for the company to send her oxygen continue supplement oxygen Elevated Troponin: Trending downwards now.Denies chest pain -EKG nonspecific T wave abnormality Anemia: Hg on admission 9.7; was 10's as outpatient for past month. No active bleeding -Hemoccult done in the ER before starting heparin drip was negative -Hgb today was 9.5 -Started B12 & Folate supplementation as their levels are low. Stage IV Pancreatic Cancer: Follows with Dr. Parker As per clinic note patient's sister Jessica Christianson declined palliative chemotherapy and opted for palliative care Malignant Ascites: Stable. S/p therapeutic paracentesis on 10/05/16 Protein Energy Malnutrition: Due to recent weight loss as well poor intake as well malignancy. Paracentesis may have added to weight loss too. -Continue food supplements. History HTN: Episodic hypotension in ER. She has not been taking lisinopril as per aid -Holding lisinopril due to BP in the low side Code Status: Patient is DNR. Disposition: Discharge when INR is at goal. Office of aging has been involved. Follows with Pamela Kim PA-C for primary care and Dr. Parker for oncology Pt should be placed to a correction if she will be discharged on Coumadin because she will not be able to follow direction with Coumadin dosage Pt will stay in the hospital until INR therapeutic with heparin drip, goal INR btw 2-3 I spoke to pt aid, she said that the do not train to give medication (she will not be able to give Lovenox) Also aid said pt sometimes refused to take med. If she cannot comply or if bleeding occurs, will consider IVC filter in the future. Vital Signs: Date Time Temp Pulse Resp B/P Pulse Ox O2 Delivery O2 Flow Rate FiO2 10/12/16 08:30 Nasal Cannula 2.0 10/12/16 08:04 36.7 94 32 111/80 99 Nasal Cannula 4.0 10/12/16 00:00 Nasal Cannula 2.0 10/12/16 00:00 36.8 88 18 104/69 91 4.0 10/11/16 16:00 91 Nasal Cannula 2.0 10/11/16 15:52 36.6 98 20 111/75 91 Nasal Cannula 4.0 Lab Results: Results Past 24 Hours Test 10/12/16 05:44 10/12/16 08:42 Range/Units White Blood Count 6.12 4.8-10.8 K/uL Red Blood Count 3.70 4.2-5.4 M/uL Hemoglobin 9.3 12.0-16.0 g/dL Hematocrit 30.2 37-47 % Mean Corpuscular Volume 81.6 80-100 fL Mean Corpuscular Hemoglobin 25.1 25-34 pg Mean Corpuscular Hemoglobin Concent 30.8 32-36 g/dl Platelet Count 354 130-400 K/uL Mean Platelet Volume 9.4 7.4-10.4 fL Neutrophils (%) (Auto) 80.1 % Lymphocytes (%) (Auto) 12.3 % Monocytes (%) (Auto) 6.4 % Eosinophils (%) (Auto) 0.5 % Basophils (%) (Auto) 0.2 % Neutrophils # (Auto) 4.91 1.4-6.5 K/uL Lymphocytes # (Auto) 0.75 1.2-3.4 K/uL Monocytes # (Auto) 0.39 0.11-0.59 K/uL Eosinophils # (Auto) 0.03 0-0.5 K/uL Basophils # (Auto) 0.01 0-0.2 K/uL RDW Standard Deviation 52.5 36.4-46.3 fL RDW Coefficient of Variation 17.6 11.5-14.5 % Immature Granulocyte % (Auto) 0.5 % Immature Granulocyte # (Auto) 0.03 0.00-0.02 K/uL Prothrombin Time 37.5 9.0-12.0 SECONDS Prothromb Time International Ratio 3.3 0.9-1.1
[2016-10-12 15:24] VITALS: BP 93/63; PULSE 41; TEMP 36.7; O2SAT 91
[2016-10-12 15:32] VITALS: BP 102/67; PULSE 90; O2SAT 91
[2016-10-12 16:15] VITALS: O2SAT 91
[2016-10-13 00:16] VITALS: BP 99/66; PULSE 77; TEMP 36.6; O2SAT 96
[2016-10-13 07:55] VITALS: BP 104/70; PULSE 80; TEMP 36.5; O2SAT 94
[2016-10-13 08:00] VITALS: O2SAT 94
[2016-10-13 08:01] VITALS: O2SAT 94
[2016-10-13 09:34] LABS: BASO % 0.1 %; BASO ABS # 0.01 K/uL (0-0.2); COMPLETE YES; EOS % 0.6 %; HEMATOCRIT 31.7 % (37-47); IG% 0.3 %; LYMPH % 9.4 %; LYMPH ABS # 0.66 K/uL (1.2-3.4); MEAN CELL VOLUME 81.5 fL (80-100); MEAN CORPUSCULAR HEMOGLOBIN 25.4 pg (25-34); MEAN CORPUSCULAR HGB CONC 31.2 g/dl (32-36); MEAN PLATELET VOLUME 9.3 fL (7.4-10.4); MONO % 5.7 %; NEUT % 83.9 %; PLATELET COUNT 383 K/uL (130-400); RED BLOOD COUNT 3.89 M/uL (4.2-5.4); WHITE BLOOD COUNT 7.03 K/uL (4.8-10.8)
[2016-10-13] MEDS: BOOST VANILLA PO SCH ×6 (09:40→16:58)
[2016-10-13] MEDS: PANTOprazole SOD 40 MG TAB PO SCH (09:41)
[2016-10-13] MEDS: CYANOCOBALAMIN 500 MCG TAB (VIT B-12) PO SCH (09:41)
[2016-10-13] MEDS: LISINOPRIL 2.5 MG TAB PO SCH (09:41)
[2016-10-13 09:47] LABS: INR 2.8 (0.9-1.1); PROTHROMBIN TIME (PATIENT) 31.3 SECONDS (9.0-12.0)
[2016-10-13 10:06] LABS: CALCIUM 8.5 mg/dl (8.5-10.1); CREATININE 0.52 mg/dl (0.60-1.20); POTASSIUM 4.4 mmol/L (3.5-5.1)
--- NOTE | 2016-10-13 11:21 | Progress Note ---
Internal Med Progress Note Date of Service: Oct 13, 2016. Provider Documentation: SUBJECTIVE: Patient is lying in her bed and is awake. In no apparent distress. Denies any SOB or pain in the affected lower extremity. Remains afebrile,. Oral intake is reasonable well now. Moving her bowels. OBJECTIVE: Vital Signs-as noted below Examination: General- Awake and is in no acute distress Head- atraumatic Eyes- PERRL, EOMI ENT- Ears, Nose & Throat are normal. Neck- Supple, Central trachea, No JVD Lungs-B/L Moderate air entry, Almost clear to auscultation. Heart- Regular rhythm;Normal S1,S2, no murmur Abdomen- Distended due to ascites, Non-tender, normal bowel sounds Extremities- No calf tenderness Neuro- alert, awake, PERRL, EOMI Skin- warm & dry Lab data as noted below. ASSESSMENT & PLAN: Acute DVT Right Lower Extremity: Clinically & hemodynamically doing well. Outpatient venous Doppler of LE on 10/05/16 showed Right lower extremity DVT. -D/C Heparin & continue Coumadin. -INR is 2.8 so started with Coumadin 2.5 mg for now. Will follow INR. Hypoxia: Resolved.Was found to be Hypoxic on RA in ER; not on home O2. Clinically stable now. CTA chest negative for PE; + moderate pleural effusions with bibasilar consolidation, likely atelectasis, correlate clinically for pneumonia Low clinical suspicion for pneumonia; +low grade temp 37.6 in ER; no leukocytosis, no recent cough/ sob As per aid, pt saw a enforcement officer in [place], that start her on oxygen & they are waiting for the [employer] to send her oxygen continue supplement oxygen Elevated Troponin: Trending downwards now.Denies chest pain -EKG nonspecific T wave abnormality Anemia: Hg on admission 9.7; was 10's as outpatient for past month. No active bleeding -Hemoccult done in the ER before starting heparin drip was negative -Hgb today was 9.5 -Continue B12 & Folate supplementation as their levels are low. Stage IV Pancreatic Cancer: Follows with Dr. Parker As per clinic note patient's sister Jessica Christianson declined palliative chemotherapy and opted for palliative care -Requested palliative care evaluation Malignant Ascites: Gradually increasing. S/p therapeutic paracentesis on 10/05/16 Severe Protein Energy Malnutrition: Due to recent weight loss as well poor intake as well malignancy. Paracentesis may have added to weight loss too. -Continue food supplements. History HTN: Episodic hypotension in ER. She has not been taking lisinopril as per aid -Holding lisinopril due to BP in the low side Code Status: Patient is DNR. Disposition: Discharge when INR is at goal. Office of aging has been involved. Follows with Pamela Kim PA-C for primary care and Dr. Parker for oncology Pt should be placed to a skilled nursing if she will be discharged on Coumadin because she will not be able to follow direction with Coumadin dosage Pt will stay in the hospital until INR therapeutic with heparin drip, goal INR btw 2-3 I spoke to pt aid, she said that the do not train to give medication (she will not be able to give Lovenox) Also aid said pt sometimes refused to take med. If she cannot comply or if bleeding occurs, will consider IVC filter in the future. Vital Signs: Date Time Temp Pulse Resp B/P Pulse Ox O2 Delivery O2 Flow Rate FiO2 10/13/16 08:01 94 Nasal Cannula 5.0 10/13/16 07:55 36.5 80 36 104/70 94 Nasal Cannula 5.0 10/13/16 00:16 36.6 77 18 99/66 96 Nasal Cannula 5.0 10/13/16 00:00 Nasal Cannula 5.0 10/12/16 16:15 91 Nasal Cannula 4.0 10/12/16 15:32 90 32 102/67 91 Nasal Cannula 4.0 10/12/16 15:24 36.7 41 32 93/63 91 4.0 Lab Results: Results Past 24 Hours Test 10/13/16 09:18 Range/Units White Blood Count 7.03 4.8-10.8 K/uL Red Blood Count 3.89 4.2-5.4 M/uL Hemoglobin 9.9 12.0-16.0 g/dL Hematocrit 31.7 37-47 % Mean Corpuscular Volume 81.5 80-100 fL Mean Corpuscular Hemoglobin 25.4 25-34 pg Mean Corpuscular Hemoglobin Concent 31.2 32-36 g/dl Platelet Count 383 130-400 K/uL Mean Platelet Volume 9.3 7.4-10.4 fL Neutrophils (%) (Auto) 83.9 % Lymphocytes (%) (Auto) 9.4 % Monocytes (%) (Auto) 5.7 % Eosinophils (%) (Auto) 0.6 % Basophils (%) (Auto) 0.1 % Neutrophils # (Auto) 5.90 1.4-6.5 K/uL Lymphocytes # (Auto) 0.66 1.2-3.4 K/uL Monocytes # (Auto) 0.40 0.11-0.59 K/uL Eosinophils # (Auto) 0.04 0-0.5 K/uL Basophils # (Auto) 0.01 0-0.2 K/uL RDW Standard Deviation 52.8 36.4-46.3 fL RDW Coefficient of Variation 17.7 11.5-14.5 % Immature Granulocyte % (Auto) 0.3 % Immature Granulocyte # (Auto) 0.02 0.00-0.02 K/uL Prothrombin Time 31.3 9.0-12.0 SECONDS Prothromb Time International Ratio 2.8 0.9-1.1 Sodium Level 142 136-145 mmol/L Potassium Level 4.4 3.5-5.1 mmol/L Chloride Level 109 98-107 mmol/L Carbon Dioxide Level 25 21-32 mmol/L Anion Gap 8.0 3-11 mmol/L Blood Urea Nitrogen 20 7-18 mg/dl Creatinine 0.52 0.60-1.20 mg/dl Est Creatinine Clear Calc Drug Dose 66.6 ml/min Estimated GFR () 117.0 Estimated GFR (Non- 101.0 BUN/Creatinine Ratio 38.0 10-20 Random Glucose 119 70-99 mg/dl Calcium Level 8.5 8.5-10.1 mg/dl
[2016-10-13] MEDS ORDERED: BISACODYL 10 MG SUPP PR STA (14:40)
--- NOTE | 2016-10-13 14:42 | Palliative Care Consultation ---
Consultation Date of Consultation: Oct 13, 2016. Requesting Physician: Dr. Cruz Attending Physician: Dr. Cruz Reason for Consultation: Possible pain related to metastatic pancreatic cancer History of Present Illness This 66 year old female patient with PMH of intellectual disability, pancreatic cancer stage IV with pelvic mass, malignant ascites, pleural effusions, was sent to the ED eight days ago for DVT on outpatient ultrasound. History obtained from record as patient is a poor historian. Patient seen by Dr. Parker on day of admission and noted to have edema and oxygen saturation of 91% on RA. Ultrasound showed RLE DVT. Patient also underwent therapeutic paracentesis on 10/05/16. Appetite has been low. Weight dropped 25 lb in past year. Patient previously lived independently with in-home caregivers through [employer], but is less able to take care of herself for past few weeks. Patient's sister lives in [place], who is her next of kin. Patient's sister apparently decided to not pursue treatment for the patient's widespread metastatic disease. Palliative care consulted to assist with establishing goals of care. I met with the patient in room 252. She is awake and alert. Oriented to person, but she is intellectually disabled making it very difficult assess and speak with her. She seemed somewhat agitated and would say, "I'm watching TV," when I asked her questions. She did state that she has no pain, nausea, vomiting or other discomfort. Nursing reported to me that they have not seen any signs of pain either, even during assessments and ambulation. Patient could not really provide me an entire ROS or about her wishes/goals of care. Per record, however , patient's sister/next of kin, Tami, has stated that the goal is for comfort and no palliative chemo would be given for the cancer. Patient was deemed a poor candidate for chemo anyway. At this point, the goal is for the patient to go to the [facility] and pursue palliative care. Past Medical/Surgical History Medical History: Hypertension Intellectual disability Malignant ascites Pancreatic cancer Permanent Comment: stage IV Pelvic mass Surgical History: Tubal ligation Social History Smoking Status: Never Smoker History of Alcohol Use: No Drug Use: none Housing Status: lives alone (aide from [employer] checks in on her) Review of Systems Constitutional: No weakness Respiratory: No shortness of breath Cardiac: No chest pain Abdomen: No nausea, No pain, No vomiting limited ROS due to intellectual disability Allergies Coded Allergies: No Known Allergies (Unverified , 10/05/16) Medications Current Inpatient Medications Medications (Trade) Dose Ordered Sig/[place] Route Start Time Stop Time Status Last Admin Dose Admin Acetaminophen (Tylenol Tab) 325 mg Q6H PRN PO 10/05/16 20:30 11/04/16 20:29 Tramadol HCl (Ultram Tab) 25 mg Q6H PRN PO 10/05/16 21:45 11/04/16 21:44 Ondansetron HCl (Zofran Inj) 4 mg Q6H PRN IV 10/05/16 21:45 11/04/16 21:44 Lisinopril (Zestril Tab) 2.5 mg DAILY PO 10/06/16 09:00 11/05/16 08:59 10/12/16 08:34 2.5 MG Pantoprazole Sodium (Protonix Tab) 40 mg QAM PO 10/06/16 09:00 11/05/16 08:59 10/12/16 08:34 40 MG Enteral Nutritional Formula (Boost) 1 can TIDM PO 10/06/16 12:00 11/05/16 11:59 10/13/16 12:11 1 CAN Cyanocobalamin (Vitamin B-12 Tab) 500 mcg QAM PO 10/11/16 09:00 11/10/16 08:59 10/12/16 08:35 500 MCG Folic Acid (Folvite Tab) 1 mg QAM PO 10/11/16 09:00 11/10/16 08:59 10/12/16 08:34 1 MG Warfarin Sodium (Coumadin Tab) 4 mg DAILY@16 PO 10/10/16 16:00 11/09/16 15:59 Future Hold 10/10/16 16:20 4 MG Warfarin Sodium (Coumadin Tab) 2.5 mg DAILY@16 PO 10/13/16 16:00 11/12/16 15:59 Physical Exam Date Time Temp Pulse Resp B/P Pulse Ox O2 Delivery O2 Flow Rate FiO2 10/13/16 08:01 94 Nasal Cannula 5.0 10/13/16 08:00 94 Nasal Cannula 5.0 10/13/16 07:55 36.5 80 36 104/70 94 Nasal Cannula 5.0 10/13/16 00:16 36.6 77 18 99/66 96 Nasal Cannula 5.0 10/13/16 00:00 Nasal Cannula 5.0 10/12/16 16:15 91 Nasal Cannula 4.0 10/12/16 15:32 90 32 102/67 91 Nasal Cannula 4.0 10/12/16 15:24 36.7 41 32 93/63 91 4.0 General Appearance: no apparent distress, + cachetic, + pertinent finding ( chronically ill appearing) Neck: no JVD Respiratory: lungs clear, no respiratory distress, no accessory muscle use, + decreased breath sounds Cardiovascular: regular rate, rhythm, no edema, + normal peripheral pulses Abdomen: normal bowel sounds, non tender, + distended (extremely distended 2/2 malignant ascites, firm) Neurologic/Psychiatric: alert (is intellectually disabled), + pertinent finding (oriented to person and place) Skin: warm/dry Laboratory Results Last 24 Hours Test 10/13/16 09:18 White Blood Count 7.03 K/uL Red Blood Count 3.89 M/uL Hemoglobin 9.9 g/dL Hematocrit 31.7 % Mean Corpuscular Volume 81.5 fL Mean Corpuscular Hemoglobin 25.4 pg Mean Corpuscular Hemoglobin Concent 31.2 g/dl Platelet Count 383 K/uL Mean Platelet Volume 9.3 fL Neutrophils (%) (Auto) 83.9 % Lymphocytes (%) (Auto) 9.4 % Monocytes (%) (Auto) 5.7 % Eosinophils (%) (Auto) 0.6 % Basophils (%) (Auto) 0.1 % Neutrophils # (Auto) 5.90 K/uL Lymphocytes # (Auto) 0.66 K/uL Monocytes # (Auto) 0.40 K/uL Eosinophils # (Auto) 0.04 K/uL Basophils # (Auto) 0.01 K/uL RDW Standard Deviation 52.8 fL RDW Coefficient of Variation 17.7 % Immature Granulocyte % (Auto) 0.3 % Immature Granulocyte # (Auto) 0.02 K/uL Prothrombin Time 31.3 SECONDS Prothromb Time International Ratio 2.8 Sodium Level 142 mmol/L Potassium Level 4.4 mmol/L Chloride Level 109 mmol/L Carbon Dioxide Level 25 mmol/L Anion Gap 8.0 mmol/L Blood Urea Nitrogen 20 mg/dl Creatinine 0.52 mg/dl Est Creatinine Clear Calc Drug Dose 66.6 ml/min Estimated GFR () 117.0 Estimated GFR (Non- 101.0 BUN/Creatinine Ratio 38.0 Random Glucose 119 mg/dl Calcium Level 8.5 mg/dl Assessment & Plan Palliative Performance Scale: 50 % Problem list: Weakness Cachexia/malnutrition Metastatic pancreatic cancer Abdominal ascites, malignant Pleural effusions Respiratory failure 2/2 above- resolved ? Pain- no suspicion of pain on assessment. Palliative care plan: -Patient denies any pain, no signs of pain on assessment, even during palpation of abdomen. Nursing staff here has not seen any signs of pain. -Continue PRN Tramadol for pain if needed. Patient has not received a dose yet. -Goal is to get the patient to the [facility] care initially. Target assessment pending. Eventually may decide to transition to comfort care only/ hospice as the patient is not pursuing any treatment for the stage IV pancreatic CA. -Unfortunately no family in the area to fill out POLST form, but decision making is deferred to patient's sister Tami. Thank you kindly for this consult. Please contact me if there are any further palliative care needs.
[2016-10-13] MEDS ORDERED: DOCUSATE SODIUM/SENNA 50/8.6MG TAB PO ONE (14:45)
[2016-10-13 15:55] VITALS: O2SAT 94
[2016-10-13] MEDS ORDERED: WARFARIN SOD 2.5 MG TAB PO SCH (16:00)
[2016-10-14] VITALS: O2SAT 94
--- NOTE | 2016-10-14 06:52 | Progress Note ---
Progress Note Date of Service Oct 14, 2016. Progress Note Asked to pronounce: Patient is completely unresponsive No Pulses ,no respiration and no audible heart sounds Pupils fixed and widely dilated. She was pronounced on 10/14/2016 at 6:30AM Dr Childers
[2016-10-14] MEDS ORDERED: DOCUSATE SODIUM/SENNA 50/8.6MG TAB PO SCH (09:00)
--- NOTE | 2016-10-14 16:08 | Discharge Summary ---
Discharge Summary Date of Service Oct 14, 2016. Discharge Summary Admission Date: Oct 05, 2016 at 21:20 Discharge Disposition: Principal Diagnosis: Stage IV Pancreatic cancer Acute DVT Right Lower Extremity Hypoxia (Resolved) Secondary Diagnoses/Problems: Malignant Ascites Severe Protein Energy Malnutrition HTN Procedures: Paracentesis Vaccinations: NONE Consultations: GI Consult Palliative care Consult Admission Information HPI (per Admitting provider): This is a 66 y/o female with PMH of intellectual disability, pancreatic cancer stage IV with pelvic mass, malignant ascites, pleural effusions, who was sent to the ED for DVT on outpatient ultrasound. Hx obtained from records and aide at bedside as patient is a poor historian. Patient was seen by Dr. Parker today and noted to have trace edema and borderline sat of 91@ on RA. Ultrasound showed RLE DVT. Pt also underwent therapeutic paracentesis. Patient's aide at bedside states the abdominal distension appears improved. Appetite has been low. Weight dropped 25 lb in past year. Pt previously lived independently but is less able to take care of herself for past few weeks. No hx of heart disease. She was not on oxygen at home. Patient denies fever, chills, rhinorrhea , cough, chest pain, SOB, abdominal pain, nausea, vomiting, diarrhea, dysuria, frequency, calf pain, abnormal bleeding, wounds. ROS not entirely reliable as her aide notes that patient is unlikely to complain when having symptoms. Physical Exam (per Admitting): General Appearance: no apparent distress, + cachetic, + pertinent finding ( alert chronically ill appearing 66 year old female, intellectual disability, aide at bedside) Head: normocephalic, atraumatic Eyes: normal inspection, PERRL, EOMI ENT: hearing grossly normal, + pertinent finding (pt uncooperative with exam of pharynx) Neck: trachea midline Respiratory/Chest: lungs clear, no respiratory distress, no accessory muscle use, + decreased breath sounds (at bases), + pertinent finding (no adventitious sounds) Cardiovascular: regular rate, rhythm, no murmur Abdomen/GI: normal bowel sounds, non tender, soft, + pertinent finding ( mildly distended but soft, mass felt in pelvis) Extremities/Musculoskelatal: no calf tenderness, + pertinent finding (trace pretibial edema bilaterally) Neurologic/Psych: alert, normal mood/affect, oriented x 3, + pertinent finding (intellectual disability) Skin: normal color, warm/dry Hospital Course Acute DVT Right Lower Extremity: Clinically & hemodynamically doing well. Outpatient venous Doppler of LE on 10/05/16 showed Right lower extremity DVT. -D/C Heparin & continue Coumadin. -INR is 2.8 so started with Coumadin 2.5 mg for now. Will follow INR. Hypoxia: Resolved.Was found to be Hypoxic on RA in ER; not on home O2. Clinically stable now. CTA chest negative for PE; + moderate pleural effusions with bibasilar consolidation, likely atelectasis, correlate clinically for pneumonia Low clinical suspicion for pneumonia; +low grade temp 37.6 in ER; no leukocytosis, no recent cough/ sob As per aid, pt saw a quality engineer medical device in [place], that start her on oxygen & they are waiting for the [employer] to send her oxygen continue supplement oxygen Elevated Troponin: Trending downwards now.Denies chest pain -EKG nonspecific T wave abnormality Anemia: Hg on admission 9.7; was 10's as outpatient for past month. No active bleeding -Hemoccult done in the ER before starting heparin drip was negative -Hgb today was 9.5 -Continue B12 & Folate supplementation as their levels are low. Stage IV Pancreatic Cancer: Follows with Dr. Parker As per clinic note patient's sister Jessica Christianson declined palliative chemotherapy and opted for palliative care -Requested palliative care evaluation Malignant Ascites: Gradually increasing. S/p therapeutic paracentesis on 10/05/16 Severe Protein Energy Malnutrition: Due to recent weight loss as well poor intake as well malignancy. Paracentesis may have added to weight loss too. -Continue food supplements. History HTN: Episodic hypotension in ER. She has not been taking lisinopril as per aid -Holding lisinopril due to BP in the low side Code Status: Patient is DNR. Disposition: Discharge when INR is at goal. Office of aging has been involved. Follows with Pamela Kim PA-C for primary care and Dr. Parker for oncology Patient on 10/14/2016 in AM. Was pronounced by Dr. Childers Total time spent on discharge = This includes examination of the patient, discharge planning, medication reconciliation, and communication with other providers. Discharge Instructions Patient Additional Copies To Pamela Kim PA-C
== END 2016-10-14 06:30 | disposition expired | DRG 299 ==
LOC: ENRESERVTM → ENRESERVDT → C.EDB 16:37 → C.MS2W 21:20
PROVIDERS: ADMIT Internal Medicine; ATTEND Emergency Medicine
PROC: 0W9G3ZZ Drainage of Peritoneal Cavity, Percutaneous Approach (ICD-10-PCS; principal; 2016-10-05)
DX: I82.401 Acute embolism and thrombosis of unspecified deep veins of right lower extremity (principal); E43 Unspecified severe protein-calorie malnutrition; J96.01 Acute respiratory failure with hypoxia; R18.0 Malignant ascites; I24.8 Other forms of acute ischemic heart disease; R64 Cachexia; J90 Pleural effusion, not elsewhere classified; C25.1 Malignant neoplasm of body of pancreas; Z51.5 Encounter for palliative care; D64.9 Anemia, unspecified; I10 Essential (primary) hypertension; Z66 Do not resuscitate; G31.84 Mild cognitive impairment of uncertain or unknown etiology; F79 Unspecified intellectual disabilities; Z82.49 Family history of ischemic heart disease and other diseases of the circulatory system; Z80.42 Family history of malignant neoplasm of prostate; R60.9 Edema, unspecified